=== PATIENT | male | born 1945 | race Caucasian/White ===

== ENCOUNTER 2016-09-26 13:31 | Emergency (ER) | payer OTHER ==
[~2016-09-26] VITALS: Ht 175.3 cm; Wt 79.4 kg
[2016-09-26 13:40] VITALS: BP 164/83; PULSE 78; RESP 18; TEMP 98; O2SAT 100
--- NOTE | 2016-09-26 13:44 | NUR ---
Patient to ER bed 06 to gown for evaluation. Side rails up.
[2016-09-26] MEDS ORDERED: NS 1000 ML BAG IV ONE (13:45)
--- NOTE | 2016-09-26 13:45 | NUR ---
Pt brought by self, A&O x4, pt was sent from his family doctor office due to abnormal labs,(high potassium and elevated BS ) pt denies any symptoms, skin pink and warm, cap refill <3. VS WNL. respirations even and unlabored.
--- NOTE | 2016-09-26 13:54 | NUR ---
Dr Crow at bedside examining patient
[2016-09-26] MEDS ORDERED: LISI40TA4 PO (13:56)
[2016-09-26] MEDS ORDERED: INSNLG7030 SUBCUT (13:56)
[2016-09-26] MEDS ORDERED: WARF5TAB2 PO (13:56)
[2016-09-26] MEDS ORDERED: SPIR25TA4 PO (13:56)
[2016-09-26] MEDS ORDERED: NOR10 PO (13:56)
[2016-09-26] MEDS ORDERED: DIGO125T79 PO (13:56)
[2016-09-26] MEDS ORDERED: METO50TA7 PO (13:56)
[2016-09-26] MEDS ORDERED: LINA5TAB2 PO (13:56)
[2016-09-26] MEDS ORDERED: HYDR-1115 PO (13:56)
[2016-09-26] MEDS ORDERED: PRAV40TA PO (13:56)
--- NOTE | 2016-09-26 13:57 | NUR ---
Medication reconciliation completed with information provided by paperwork from HCP. Any prior medication reconciliation on file was reviewed and corrected.
[2016-09-26 14:05] LABS: BASOPHILS % (AUTO) 0.2 % (0.0-2.0); EOSINOPHILS # (AUTO) 0.1 K/uL (0.0-0.4); EOSINOPHILS % (AUTO) 1.7 % (0.0-4.0); HEMATOCRIT 31.6 % (36-54); HEMOGLOBIN 10.4 g/dL (14.0-18.0); LYMPHOCYTES # (AUTO) 1.3 K/uL (1.0-5.5); LYMPHOCYTES % (AUTO) 16.5 % (20.5-51.5); MEAN CORPUSCULAR HEMOGLOBIN 29 pg (27-31); MEAN CORPUSCULAR HGB CONC 33 % (32-36); MEAN CORPUSCULAR VOLUME 87 fL (79.0-98.0); MONOCYTES # (AUTO) 0.5 K/uL (0.0-1.0); MONOCYTES % (AUTO) 6.8 % (1.7-9.3); NEUTROPHILS # (AUTO) 5.8 K/uL (1.8-7.7); NEUTROPHILS % (AUTO) 74.8 % (40.0-70.0); PLATELET COUNT (AUTO) 197 K/uL (130-430); RED BLOOD CELL COUNT(AUTO) 3.64 MIL/uL (4.2-6.2); RED CELL DISTRIBUTION WIDTH 13.4 % (9.0-15.0); WHITE BLOOD COUNT (AUTO) 7.7 K/uL (4.8-10.8)
[2016-09-26] MEDS ORDERED: INSULIN REGULAR, HUMAN 10 UNITS/0.1 ML INJ IVP ONE (14:15)
[2016-09-26 14:21] LABS: INR 1.7 (0.80-1.20); PROTHROMBIN TIME 18.7 SECS (9.5-12.5)
[2016-09-26 14:23] LABS: ALBUMIN 3.8 g/dL (3.4-4.8); CALCIUM 8.4 mg/dL (8.4-11.0); CREATININE 3.34 mg/dL (0.55-1.30); TOTAL BILIRUBIN 0.3 mg/dL (0.0-1.0); TOTAL PROTEIN, SERUM 8.1 g/dL (6.4-8.3)
[2016-09-26 14:26] LABS: POTASSIUM 5.8 mmol/L (3.5-5.1)
[2016-09-26 14:43] LABS: DIGOXIN 0.6 ng/mL (0.80-2.00)
--- NOTE | 2016-09-26 15:09 | NUR ---
Pt on stable condition, requesting a pillow at this time, denies any symptoms.
[2016-09-26 16:03] LABS: BILIRUBIN,URINE NEGATIVE (NEGATIVE); BLOOD, URINE NEGATIVE (NEGATIVE); CLARITY/URINE CLEAR (CLEAR); COLOR,URINE YELLOW (YELLOW); GLUCOSE,URINE 3+ (NEGATIVE); KETONES,URINE NEGATIVE (NEGATIVE); LEUKOCYTE ESTERASE ,URINE NEGATIVE (NEGATIVE); NITRITE, URINE NEGATIVE (NEGATIVE); PH,URINE 5.5 (5.0-8.0); PROTEIN URINE 1+ (NEGATIVE); UROBILINOGEN,URINE 0.2 (0.2-1.0)
[2016-09-26 16:30] LABS: CALCIUM 7.7 mg/dL (8.4-11.0); CREATININE 2.98 mg/dL (0.55-1.30)
[2016-09-26] MEDS ORDERED: IBUPROFEN 800 MG TABLET PO ONE (16:30)
[2016-09-26 16:41] LABS: BACTERIA,URINE FEW /HPF (None Seen); RBC,URINE NONE SEEN /HPF (0-3); WBC,URINE 0-3 /HPF (0-3)
[2016-09-26 16:42] LABS: FINE GRANULAR CASTS,URINE 0-10 /LPF (None Seen); MUCUS,URINE None Seen /LPF (None Seen)
[2016-09-26 16:45] VITALS: BP 152/83; PULSE 76; RESP 18; TEMP 98; O2SAT 98
--- NOTE | 2016-09-26 16:45 | NUR ---
Patient given written and verbal discharge instructions and verbalizes understanding. ER MD Crow discussed with patient the results and treatment provided. Patient in stable condition. ID arm band removed. IV catheter removed intact and dressing applied, no active bleeding. No rx given. Patient educated on pain management and to follow up with PMD. Pain Scale 0/10. Opportunity for questions provided and answered.
== END 2016-09-26 16:45 | disposition home or self-care (01) ==
LOC: SED 13:31
DX: E11.65 Type 2 diabetes mellitus with hyperglycemia (principal); E23.2 Diabetes insipidus; D64.9 Anemia, unspecified; Z79.4 Long term (current) use of insulin
CPT/HCPCS: 36415; 80048; 80053; 80162; 81000; 82962; 83605; 85025; 85610; 85730; 93005; 96361; 96374; 99285; J7030; 96375; J1815

== ENCOUNTER 2020-08-21 19:21 | Emergency (ER) | payer MEDICARE, OTHER ==
[~2020-08-21] VITALS: Ht 175.3 cm; Wt 78.0 kg
[~2020-08-21 19:21] MED LIST: DIGO125T PO; HYDR-4038 PO; INSNLG7030 SUBCUT; LINA5TAB2 PO; LISI40TA13 PO; METO50TA7 PO; NOR10 PO; PRAV40TA PO; SPIR25TA6 PO; WARF5TAB2 PO
[2020-08-21 19:35] VITALS: BP_SYST 150
[2020-08-21] MEDS ORDERED: KETOROLAC TROMETHAMINE 60 MG/2 ML VIAL IM ONE (20:15)
[2020-08-21] MEDS ORDERED: HYDR-3919 PO (20:32)
[2020-08-21] MEDS ORDERED: ACET-2634 PO (20:32)
[2020-08-21 20:42] VITALS: BP_SYST 150
== END 2020-08-21 20:40 | disposition home or self-care (01) ==
LOC: SED 19:21
DX: S29.9XXA Unspecified injury of thorax, initial encounter (principal); I10 Essential (primary) hypertension; E11.9 Type 2 diabetes mellitus without complications; E78.5 Hyperlipidemia, unspecified; Z79.899 Other long term (current) drug therapy; W18.39XA Other fall on same level, initial encounter; Y93.89 Activity, other specified; Y92.89 Other specified places as the place of occurrence of the external cause; Y99.8 Other external cause status
CPT/HCPCS: 71045; 71100; 96372; 99284; J1885

== ENCOUNTER 2021-01-19 05:09 | Emergency (ER) | payer MEDICARE, OTHER ==
[~2021-01-19] VITALS: Ht 175.3 cm; Wt 77.1 kg
[~2021-01-19 05:09] MED LIST changes: +ACET-2634 PO; +HYDR-3919 PO
[2021-01-19 05:17] VITALS: BP_SYST 129
--- NOTE | 2021-01-19 05:21 | NUR ---
Patient to ER bed 7 to gown for evaluation. Side rails up. Report given to Narda BURNETT.
--- NOTE | 2021-01-19 05:22 | NUR ---
Came in ER ambulatory from home this 75 year old male, [id number], breathing spontaneously at room air, not in distress noted. With chief complaints of unsure of the blood glucose level due to his glucose check machine shows undetectable, known case with DM on insulin, HTN on medication, no known allergy, vital signs stable
--- NOTE | 2021-01-19 05:25 | NUR ---
ER at bedside examining patient.
--- NOTE | 2021-01-19 05:34 | NUR ---
Patient given written and verbal discharge instructions and verbalizes understanding. ER MD discussed with patient the results and treatment provided. Patient in stable condition. ID arm band removed. No Rx of given. Patient educatedto follow up with PMD. Pain Scale 0/10. Opportunity for questions provided and answered.
[2021-01-19 05:35] VITALS: BP_SYST 121
== END 2021-01-19 05:34 | disposition home or self-care (01) ==
LOC: SED 05:09
DX: E11.649 Type 2 diabetes mellitus with hypoglycemia without coma (principal); I10 Essential (primary) hypertension; Z79.899 Other long term (current) drug therapy
CPT/HCPCS: 82962; 99282

== ENCOUNTER 2021-08-05 13:30 | Outpatient (CLI) | payer OTHER | END 2021-08-05 18:55 | disposition home or self-care (01) | LOC: SRD 13:30 | PROVIDERS: ATTEND Internal Medicine | DX: J84.89 Other specified interstitial pulmonary diseases (principal); I51.7 Cardiomegaly; I70.90 Unspecified atherosclerosis; R06.00 Dyspnea, unspecified | CPT/HCPCS: 71046-TC ==

== ENCOUNTER → 2022-04-20 | Emergency (ER) | payer MEDICARE, OTHER ==
[~2022-04-20] VITALS: Ht 175.3 cm; Wt 69.4 kg
[2022-04-20 12:08] VITALS: BP_SYST 129
== END | disposition left against medical advice (07) ==
LOC: SED 11:38
DX: H44.003 Unspecified purulent endophthalmitis, bilateral (principal); Z53.21 Procedure and treatment not carried out due to patient leaving prior to being seen by health care provider

== ENCOUNTER 2022-08-12 06:21 | Day surgery (SDC) | payer MEDICARE, OTHER ==
[~2022-08-12] VITALS: Ht 175.3 cm; Wt 70.3 kg
[2022-08-12] MEDS ORDERED: SIMETHICONE 40 MG/0.6 ML ML ONE (07:11)
[2022-08-12] MEDS: MIDAZOLAM HCL 5 MG/5 ML VIAL ONE ×3 (07:48→08:02)
[2022-08-12] MEDS: fentaNYL CITRATE/PF 100 MCG/2 ML AMP ONE ×2 (07:48→07:50)
[2022-08-12 12:59] VITALS: BP_SYST 140
== END 2022-08-12 10:00 | disposition home or self-care (01) ==
LOC: SDS 06:21 → SMU 06:22 → SDS 10:00
PROVIDERS: ATTEND Internal Medicine
DX: Z12.11 Encounter for screening for malignant neoplasm of colon (principal); D12.2 Benign neoplasm of ascending colon; D12.4 Benign neoplasm of descending colon; Z86.010 Personal history of colon polyps; K57.30 Diverticulosis of large intestine without perforation or abscess without bleeding; K64.8 Other hemorrhoids; I10 Essential (primary) hypertension; E11.9 Type 2 diabetes mellitus without complications; Z20.822 Contact with and (suspected) exposure to COVID-19; Z79.899 Other long term (current) drug therapy
CPT/HCPCS: 45380; 45385; 87426; 82962; 36415; 88305; 99152; 99153; G0378; J2250; J3010; 45384

== ENCOUNTER 2022-09-14 11:19 | Inpatient (IN) | payer MEDICARE, OTHER ==
[~2022-09-14] VITALS: Ht 175.3 cm; Wt 69.9 kg
[2022-09-14 11:22] VITALS: BP_SYST 126
[2022-09-14] MEDS ORDERED: OXYCODONE/ACETAMINOPHEN 5-325 TABLET PO ONE (11:30)
[2022-09-14] MEDS ORDERED: NACL 0.9% 1,000 ML IV ONE (12:30)
[2022-09-14] MEDS ORDERED: LIP40 PO (12:41)
[2022-09-14] MEDS ORDERED: SPIR25OR PO (12:41)
[2022-09-14] MEDS ORDERED: DAPA5TAB PO (12:41)
[2022-09-14] MEDS ORDERED: WARF3TAB59 PO (12:41)
[2022-09-14] MEDS ORDERED: LISI40TA13 PO (12:41)
[2022-09-14] MEDS ORDERED: VITD2000 PO (12:41)
[2022-09-14] MEDS ORDERED: METO100T14 PO (12:41)
[2022-09-14] MEDS ORDERED: INSNLG7030 SUBCUT (12:41)
[2022-09-14] MEDS ORDERED: SODI650T PO (12:41)
[2022-09-14] MEDS ORDERED: AMLO2.5T2 PO (12:41)
[2022-09-14] MEDS ORDERED: HYDR-4038 PO (12:41)
[2022-09-14] MEDS ORDERED: OMEG100037 PO (12:41)
[2022-09-14] MEDS ORDERED: FERR220S6 PO (12:41)
[2022-09-14] MEDS ORDERED: FAMOTIDINE PF 20 MG/2 ML VIAL IVP ONE (12:45)
[2022-09-14 12:52] LABS: BASOPHILS % (AUTO) 0.1 % (0.0-2.0); HEMATOCRIT 28.3 % (36-54); HEMOGLOBIN 9.6 g/dL (14.0-18.0); LYMPHOCYTES # (AUTO) 0.3 K/uL (1.0-5.5); LYMPHOCYTES % (AUTO) 2.3 % (20.5-51.5); MEAN CORPUSCULAR HEMOGLOBIN 29 pg (27-31); MEAN CORPUSCULAR HGB CONC 34 % (32-36); MEAN CORPUSCULAR VOLUME 87 fL (79.0-98.0); MONOCYTES # (AUTO) 0.6 K/uL (0.0-1.0); MONOCYTES % (AUTO) 4.5 % (1.7-9.3); NEUTROPHILS # (AUTO) 13.4 K/uL (1.8-7.7); NEUTROPHILS % (AUTO) 93.1 % (40.0-70.0); PLATELET COUNT (AUTO) 186 K/uL (130-430); RED BLOOD CELL COUNT(AUTO) 3.27 MIL/uL (4.2-6.2); RED CELL DISTRIBUTION WIDTH 15.4 % (9.0-15.0); WHITE BLOOD COUNT (AUTO) 14.4 K/uL (4.8-10.8)
[2022-09-14] MEDS ORDERED: FAMOTIDINE PF 20 MG/2 ML VIAL ONE (12:52)
[2022-09-14] MEDS ORDERED: METOPROLOL SUCCINATE 50 MG TAB.SR.24H (TOPROL XL) PO SCH (13:00)
[2022-09-14] MEDS ORDERED: METOPROLOL SUCCINATE 50 MG TAB.SR.24H (TOPROL XL) PO ONE (13:00)
[2022-09-14] MEDS ORDERED: ONDANSETRON HCL 4 MG/2 ML VIAL IVP ONE (13:00)
[2022-09-14 13:02] LABS: ANION GAP 13 (5-15); CALCIUM 8.6 mg/dL (8.4-11.0); CHLORIDE 104 mmol/L (98-107); CREATININE 2.68 mg/dL (0.55-1.30); GLUCOSE 162 mg/dL (70-99); UREA NITROGEN, BLOOD 64 mg/dL (8-21)
[2022-09-14 13:08] LABS: ALANINE AMINOTRANSFERASE 65 U/L (12-78); ALBUMIN 3.3 g/dL (3.4-4.8); ASPARTATE AMINOTRANSFERASE 34 U/L (10-37); PHOSPHORUS 3.8 mg/dL (2.7-4.5); TOTAL BILIRUBIN 0.6 mg/dL (0.0-1.0)
[2022-09-14 13:25] LABS: INR 1.9 (0.80-1.20); PROTHROMBIN TIME 19.6 SECS (9.5-12.5)
[2022-09-14] MEDS ORDERED: METOPROLOL TARTRATE 5 MG/5 ML VIAL IVP ONE ×2 (13:30→14:15)
[2022-09-14] MEDS ORDERED: cefTRIAXone 1 GM IVPB PREMIX 50 ML IV ONE (13:30)
[2022-09-14] MEDS ORDERED: DIGOXIN 0.5 MG/2 ML AMP IVP ONE (13:30)
[2022-09-14] MEDS ORDERED: DAPAGLIFLOZIN PROPANEDIOL NF 5 MG TABLET PO SCH (15:15)
[2022-09-14] MEDS ORDERED: amLODIPine BESYLATE 5 MG TABLET PO SCH (15:15)
[2022-09-14] MEDS ORDERED: HYDROcodone/ACETAMIN 5-325 MG TAB (NORCO/ VICODIN) PO PRN (15:15)
[2022-09-14] MEDS ORDERED: INSULIN Aspart Prota/Aspar MIX 70-30, 100 UNITS/ML, 10 ML VIAL SUBCUT SCH ×2 (15:15→21:00)
[2022-09-14] MEDS ORDERED: ACETAMINOPHEN 500 MG TABLET PO PRN (15:15)
[2022-09-14] MEDS ORDERED: hydrALAZINE HCL 25 MG TABLET PO ONE (16:00)
[2022-09-14] MEDS ORDERED: CHOLECALCIFEROL (VITAMIN D3) 2,000 UNIT TABLET PO ONE (16:30)
[2022-09-14] MEDS ORDERED: WARFARIN SODIUM 5 MG TABLET PO SCH (18:00)
[2022-09-14] MEDS ORDERED: dilTIAZem HCL IVP 5 MG/ML VIAL IVP ONE (19:45)
[2022-09-14] MEDS ORDERED: dilTIAZem HCL IVP 5 MG/ML VIAL ONE (19:57)
[2022-09-14 20:30] VITALS: BP_SYST 136
[2022-09-14] MEDS ORDERED: WARFARIN SODIUM 3 MG TABLET PO ONE (20:30)
[2022-09-14] MEDS ORDERED: hydrALAZINE HCL 25 MG TABLET PO SCH (21:00)
[2022-09-14] MEDS: INSULIN NPH/REGULAR 70-30, 100 UNITS/ML, 3 ML VIAL SUBCUT SCH (21:22)
[2022-09-14] MEDS: INSULIN REGULAR, HUMAN 100 UNITS/ML, 3 ML VIAL (humuLIN R) SUBCUT PRN (21:23)
[2022-09-14] MEDS: hydrALAZINE HCL 25 MG TABLET PO SCH (21:24)
[2022-09-14] MEDS: METOPROLOL SUCCINATE 50 MG TAB.SR.24H (TOPROL XL) PO SCH (21:24)
[2022-09-15 00:08] VITALS: BP_SYST 139
[2022-09-15] MEDS: INSULIN NPH/REGULAR 70-30, 100 UNITS/ML, 3 ML VIAL SUBCUT SCH ×2 (07:35→20:57)
[2022-09-15 07:54] VITALS: BP_SYST 122
[2022-09-15 08:03] LABS: INR 2.1 (0.80-1.20); PROTHROMBIN TIME 20.6 SECS (9.5-12.5)
[2022-09-15] MEDS: OMEGA-3/DHA/EPA/FISH OIL 1 GM CAPSULE PO SCH (08:52)
[2022-09-15] MEDS: SODIUM BICARBONATE 650 MG TABLET PO SCH (08:53)
[2022-09-15] MEDS: SPIRONOLACTONE 25 MG TABLET (ALDACTONE) PO SCH (08:53)
[2022-09-15] MEDS: ATORVASTATIN 20 MG TABLET PO SCH (08:53)
[2022-09-15] MEDS: amLODIPine BESYLATE 10 MG TABLET PO SCH (08:54)
[2022-09-15] MEDS: CHOLECALCIFEROL (VITAMIN D3) 2,000 UNIT TABLET PO SCH (08:54)
[2022-09-15] MEDS: lisinopriL 20 MG TABLET PO SCH (08:55)
[2022-09-15] MEDS: hydrALAZINE HCL 25 MG TABLET PO SCH ×3 (08:55→20:54)
[2022-09-15] MEDS: METOPROLOL SUCCINATE 50 MG TAB.SR.24H (TOPROL XL) PO SCH ×2 (08:56→20:54)
[2022-09-15] MEDS: DIGOXIN 0.125 MG TABLET PO SCH (08:57)
[2022-09-15] MEDS ORDERED: METOPROLOL SUCCINATE 50 MG TAB.SR.24H (TOPROL XL) PO SCH (09:00)
[2022-09-15] MEDS ORDERED: EMPAGLIFLOZIN 10 MG TABLET PO SCH (09:00)
[2022-09-15] MEDS ORDERED: lisinopriL 20 MG TABLET PO SCH (09:00)
[2022-09-15] MEDS ORDERED: PRAVASTATIN SODIUM 20 MG TABLET (PRAVACHOL) PO SCH (09:00)
[2022-09-15 11:41] VITALS: BP_SYST 138
[2022-09-15 11:47] LABS: ANION GAP 10 (5-15); CALCIUM 8.4 mg/dL (8.4-11.0); CHLORIDE 106 mmol/L (98-107); CREATININE 2.52 mg/dL (0.55-1.30); GLUCOSE 132 mg/dL (70-99); UREA NITROGEN, BLOOD 58 mg/dL (8-21)
[2022-09-15 11:54] LABS: BASOPHILS % (AUTO) 0.2 % (0.0-2.0); EOSINOPHILS % (AUTO) 0.2 % (0.0-4.0); HEMATOCRIT 26.7 % (36-54); LYMPHOCYTES # (AUTO) 0.6 K/uL (1.0-5.5); LYMPHOCYTES % (AUTO) 4.6 % (20.5-51.5); MEAN CORPUSCULAR HEMOGLOBIN 29 pg (27-31); MEAN CORPUSCULAR HGB CONC 34 % (32-36); MEAN CORPUSCULAR VOLUME 87 fL (79.0-98.0); MONOCYTES # (AUTO) 0.5 K/uL (0.0-1.0); MONOCYTES % (AUTO) 4.6 % (1.7-9.3); NEUTROPHILS # (AUTO) 10.8 K/uL (1.8-7.7); NEUTROPHILS % (AUTO) 90.4 % (40.0-70.0); PLATELET COUNT (AUTO) 162 K/uL (130-430); RED BLOOD CELL COUNT(AUTO) 3.07 MIL/uL (4.2-6.2); RED CELL DISTRIBUTION WIDTH 15.4 % (9.0-15.0)
[2022-09-15] MEDS: INSULIN REGULAR, HUMAN 100 UNITS/ML, 3 ML VIAL (humuLIN R) SUBCUT PRN ×2 (11:55→16:13)
[2022-09-15 16:56] VITALS: BP_SYST 131
[2022-09-15] MEDS ORDERED: WARFARIN SODIUM 3 MG TABLET PO SCH (18:00)
[2022-09-15] MEDS ORDERED: WARFARIN SODIUM 4 MG TABLET PO SCH (18:00)
[2022-09-15 20:00] VITALS: BP_SYST 137
[2022-09-16 01:02] VITALS: BP_SYST 128
[2022-09-16 05:32] LABS: INR 1.9 (0.80-1.20); PROTHROMBIN TIME 19.6 SECS (9.5-12.5)
[2022-09-16] MEDS: traMADol HCL HCL 50 MG TABLET (ULTRAM) PO PRN ×2 (05:45→16:00)
[2022-09-16] MEDS: INSULIN NPH/REGULAR 70-30, 100 UNITS/ML, 3 ML VIAL SUBCUT SCH ×2 (07:07→21:40)
[2022-09-16 08:00] VITALS: BP_SYST 116
[2022-09-16] MEDS: OMEGA-3/DHA/EPA/FISH OIL 1 GM CAPSULE PO SCH (09:16)
[2022-09-16] MEDS: CHOLECALCIFEROL (VITAMIN D3) 2,000 UNIT TABLET PO SCH (09:17)
[2022-09-16] MEDS: ATORVASTATIN 20 MG TABLET PO SCH (09:17)
[2022-09-16] MEDS: SODIUM BICARBONATE 650 MG TABLET PO SCH (09:17)
[2022-09-16] MEDS: SPIRONOLACTONE 25 MG TABLET (ALDACTONE) PO SCH (09:18)
[2022-09-16] MEDS: hydrALAZINE HCL 25 MG TABLET PO SCH ×3 (09:18→21:33)
[2022-09-16] MEDS: DIGOXIN 0.125 MG TABLET PO SCH (09:21)
[2022-09-16] MEDS: amLODIPine BESYLATE 10 MG TABLET PO SCH (09:21)
[2022-09-16] MEDS: lisinopriL 20 MG TABLET PO SCH (09:22)
[2022-09-16] MEDS: METOPROLOL SUCCINATE 50 MG TAB.SR.24H (TOPROL XL) PO SCH ×2 (09:22→21:32)
[2022-09-16] MEDS ORDERED: METOPROLOL SUCCINATE 25 MG TAB.SR.24H (TOPROL XL) PO ONE (11:00)
[2022-09-16] MEDS: INSULIN REGULAR, HUMAN 100 UNITS/ML, 3 ML VIAL (humuLIN R) SUBCUT PRN ×2 (11:15→17:34)
[2022-09-16 13:10] VITALS: BP_SYST 113; BP_SYST 114
[2022-09-16] MEDS: WARFARIN SODIUM 5 MG TABLET PO SCH (17:33)
[2022-09-16 18:37] VITALS: BP_SYST 135
[2022-09-16 20:00] VITALS: BP_SYST 143
[2022-09-16] MEDS ORDERED: METOPROLOL SUCCINATE 25 MG TAB.SR.24H (TOPROL XL) PO SCH (21:00)
[2022-09-16] MEDS ORDERED: VANCOMYCIN HCL 1,000 MG in NS 250 ML IV ONE (21:00)
[2022-09-16] MEDS ORDERED: METOPROLOL SUCCINATE 50 MG TAB.SR.24H (TOPROL XL) PO SCH (21:00)
[2022-09-16] MEDS: INSULIN GLARGINE 100 UNITS/ML, 10 ML VIAL SUBCUT SCH (21:39)
[2022-09-17 00:30] VITALS: BP_SYST 131
[2022-09-17 06:16] LABS: BASOPHILS % (AUTO) 0.2 % (0.0-2.0); EOSINOPHILS # (AUTO) 0.3 K/uL (0.0-0.4); EOSINOPHILS % (AUTO) 3.6 % (0.0-4.0); HEMATOCRIT 25.5 % (36-54); HEMOGLOBIN 8.7 g/dL (14.0-18.0); LYMPHOCYTES # (AUTO) 0.8 K/uL (1.0-5.5); LYMPHOCYTES % (AUTO) 9.5 % (20.5-51.5); MEAN CORPUSCULAR HEMOGLOBIN 30 pg (27-31); MEAN CORPUSCULAR HGB CONC 34 % (32-36); MEAN CORPUSCULAR VOLUME 87 fL (79.0-98.0); MONOCYTES # (AUTO) 0.7 K/uL (0.0-1.0); MONOCYTES % (AUTO) 8.5 % (1.7-9.3); NEUTROPHILS # (AUTO) 6.5 K/uL (1.8-7.7); NEUTROPHILS % (AUTO) 78.2 % (40.0-70.0); PLATELET COUNT (AUTO) 151 K/uL (130-430); RED BLOOD CELL COUNT(AUTO) 2.92 MIL/uL (4.2-6.2); RED CELL DISTRIBUTION WIDTH 15.3 % (9.0-15.0); WHITE BLOOD COUNT (AUTO) 8.3 K/uL (4.8-10.8)
[2022-09-17 06:32] LABS: INR 2.2 (0.80-1.20); PROTHROMBIN TIME 21.9 SECS (9.5-12.5)
[2022-09-17 06:45] LABS: ALANINE AMINOTRANSFERASE 42 U/L (12-78); ALBUMIN 2.5 g/dL (3.4-4.8); ANION GAP 10 (5-15); ASPARTATE AMINOTRANSFERASE 20 U/L (10-37); CALCIUM 7.8 mg/dL (8.4-11.0); CHLORIDE 103 mmol/L (98-107); CREATININE 2.63 mg/dL (0.55-1.30); GLUCOSE 174 mg/dL (70-99); PHOSPHORUS 4.1 mg/dL (2.7-4.5); TOTAL BILIRUBIN 0.6 mg/dL (0.0-1.0); UREA NITROGEN, BLOOD 65 mg/dL (8-21); VANCOMYCIN,RANDOM 12.2 ug/mL
[2022-09-17 07:49] VITALS: BP_SYST 136
[2022-09-17] MEDS: OMEGA-3/DHA/EPA/FISH OIL 1 GM CAPSULE PO SCH (08:11)
[2022-09-17] MEDS: METOPROLOL SUCCINATE 50 MG TAB.SR.24H (TOPROL XL) PO SCH ×2 (08:12→20:32)
[2022-09-17] MEDS: SODIUM BICARBONATE 650 MG TABLET PO SCH (08:13)
[2022-09-17] MEDS: lisinopriL 20 MG TABLET PO SCH (08:13)
[2022-09-17] MEDS: ATORVASTATIN 20 MG TABLET PO SCH (08:13)
[2022-09-17] MEDS: DIGOXIN 0.125 MG TABLET PO SCH (08:13)
[2022-09-17] MEDS: amLODIPine BESYLATE 5 MG TABLET PO SCH (08:14)
[2022-09-17] MEDS: hydrALAZINE HCL 25 MG TABLET PO SCH ×3 (08:14→20:33)
[2022-09-17] MEDS: CHOLECALCIFEROL (VITAMIN D3) 2,000 UNIT TABLET PO SCH (08:14)
[2022-09-17] MEDS: SPIRONOLACTONE 25 MG TABLET (ALDACTONE) PO SCH (08:15)
[2022-09-17] MEDS: traMADol HCL HCL 50 MG TABLET (ULTRAM) PO PRN (08:15)
[2022-09-17] MEDS: INSULIN NPH/REGULAR 70-30, 100 UNITS/ML, 3 ML VIAL SUBCUT SCH ×2 (08:19→20:42)
[2022-09-17] MEDS: INSULIN REGULAR, HUMAN 100 UNITS/ML, 3 ML VIAL (humuLIN R) SUBCUT PRN (11:13)
[2022-09-17 11:17] VITALS: BP_SYST 125
[2022-09-17] MEDS: WARFARIN SODIUM 5 MG TABLET PO SCH (17:11)
[2022-09-17 17:17] VITALS: BP_SYST 121
[2022-09-17 20:00] VITALS: BP_SYST 138
[2022-09-17] MEDS: INSULIN GLARGINE 100 UNITS/ML, 10 ML VIAL SUBCUT SCH (20:41)
[2022-09-17] MEDS ORDERED: VANCOMYCIN HCL 750 MG in NS 250 ML IV SCH (21:00)
[2022-09-18 00:42] VITALS: BP_SYST 148
[2022-09-18 05:43] LABS: BASOPHILS % (AUTO) 0.2 % (0.0-2.0); EOSINOPHILS # (AUTO) 0.2 K/uL (0.0-0.4); EOSINOPHILS % (AUTO) 2.2 % (0.0-4.0); HEMATOCRIT 25.7 % (36-54); LYMPHOCYTES # (AUTO) 0.7 K/uL (1.0-5.5); LYMPHOCYTES % (AUTO) 8.9 % (20.5-51.5); MEAN CORPUSCULAR HEMOGLOBIN 31 pg (27-31); MEAN CORPUSCULAR HGB CONC 35 % (32-36); MEAN CORPUSCULAR VOLUME 87 fL (79.0-98.0); MONOCYTES # (AUTO) 0.7 K/uL (0.0-1.0); NEUTROPHILS # (AUTO) 6.3 K/uL (1.8-7.7); NEUTROPHILS % (AUTO) 79.7 % (40.0-70.0); PLATELET COUNT (AUTO) 163 K/uL (130-430); RED BLOOD CELL COUNT(AUTO) 2.94 MIL/uL (4.2-6.2); RED CELL DISTRIBUTION WIDTH 15.4 % (9.0-15.0)
[2022-09-18 06:12] LABS: ANION GAP 9 (5-15); CALCIUM 7.6 mg/dL (8.4-11.0); CHLORIDE 102 mmol/L (98-107); CREATININE 2.49 mg/dL (0.55-1.30); GLUCOSE 200 mg/dL (70-99); UREA NITROGEN, BLOOD 65 mg/dL (8-21)
[2022-09-18] MEDS: INSULIN REGULAR, HUMAN 100 UNITS/ML, 3 ML VIAL (humuLIN R) SUBCUT PRN ×3 (06:49→16:12)
[2022-09-18 08:04] LABS: INR 4.1 (0.80-1.20); PROTHROMBIN TIME 40.2 SECS (9.5-12.5)
[2022-09-18 08:06] VITALS: BP_SYST 134
[2022-09-18] MEDS: OMEGA-3/DHA/EPA/FISH OIL 1 GM CAPSULE PO SCH (09:00)
[2022-09-18] MEDS: INSULIN NPH/REGULAR 70-30, 100 UNITS/ML, 3 ML VIAL SUBCUT SCH (09:41)
[2022-09-18] MEDS: SODIUM BICARBONATE 650 MG TABLET PO SCH (09:42)
[2022-09-18] MEDS: lisinopriL 20 MG TABLET PO SCH (09:43)
[2022-09-18] MEDS: DIGOXIN 0.125 MG TABLET PO SCH (09:43)
[2022-09-18] MEDS: METOPROLOL SUCCINATE 50 MG TAB.SR.24H (TOPROL XL) PO SCH (09:44)
[2022-09-18] MEDS: amLODIPine BESYLATE 5 MG TABLET PO SCH (09:45)
[2022-09-18] MEDS: hydrALAZINE HCL 25 MG TABLET PO SCH ×2 (09:45→16:05)
[2022-09-18] MEDS: ATORVASTATIN 20 MG TABLET PO SCH (09:45)
[2022-09-18] MEDS: CHOLECALCIFEROL (VITAMIN D3) 2,000 UNIT TABLET PO SCH (09:46)
[2022-09-18] MEDS: SPIRONOLACTONE 25 MG TABLET (ALDACTONE) PO SCH (09:46)
[2022-09-18 11:29] VITALS: BP_SYST 119
[2022-09-18] MEDS ORDERED: METO100T14 PO (13:06)
[2022-09-18] MEDS ORDERED: LIP40 PO (13:06)
[2022-09-18 15:32] VITALS: BP_SYST 132
[2022-09-18 17:19] VITALS: BP_SYST 131
== END 2022-09-18 18:40 | DRG 535 ==
LOC: SED 11:19 → STU 14:54 → SMU 09-17 11:50
PROVIDERS: ADMIT Specialist; ATTEND Specialist
PROC: 0QS2XZZ Reposition Right Pelvic Bone, External Approach (ICD-10-PCS; principal; 2022-09-17)
DX: S32.511A Fracture of superior rim of right pubis, initial encounter for closed fracture (principal); S32.491A Other specified fracture of right acetabulum, initial encounter for closed fracture; N18.4 Chronic kidney disease, stage 4 (severe); I48.91 Unspecified atrial fibrillation; I12.9 Hypertensive chronic kidney disease with stage 1 through stage 4 chronic kidney disease, or unspecified chronic kidney disease; E11.22 Type 2 diabetes mellitus with diabetic chronic kidney disease; E78.00 Pure hypercholesterolemia, unspecified; I25.10 Atherosclerotic heart disease of native coronary artery without angina pectoris; W18.39XA Other fall on same level, initial encounter; Z79.891 Long term (current) use of opiate analgesic; Z79.899 Other long term (current) drug therapy; Y93.89 Activity, other specified; Y99.8 Other external cause status; Y92.89 Other specified places as the place of occurrence of the external cause
CPT/HCPCS: 36415; 71045; 72170-TC; 72192-TC; 72195; 73502; 76376; 80048; 80053; 80162; 80202; 82962; 83037; 83605; 83735; 83880; 84100; 84484; 85025; 85610-TC; 85730-TC; 87040; 93005; 93306; 97110-GP; 97116-GP; 97163-GP; 97530-GP; 99285; G0378; J0696; J1160; J1815; J2405; J3370; J3490; J7050

== ENCOUNTER 2022-10-16 23:36 | Emergency (ER) | payer MEDICARE, OTHER ==
[~2022-10-16] VITALS: Ht 175.3 cm; Wt 67.1 kg
[~2022-10-16 23:36] MED LIST changes: -ACET-2634 PO; +AMLO2.5T2 PO; +DAPA5TAB PO; -HYDR-3919 PO; -LINA5TAB2 PO; +LIP40 PO; +METO100T14 PO; +OMEG100037 PO; -PRAV40TA PO; +SPIR25OR PO; +VITD2000 PO; -WARF5TAB2 PO
[2022-10-16 23:52] VITALS: BP_SYST 151
--- NOTE | 2022-10-17 | NUR ---
BILATERAL PELVIC PAIN, RECENT PELVIC FRACTURE, UNCONTROLLED PAIN MANAGEMENT
--- NOTE | 2022-10-17 01:04 | NUR ---
Patient arrived to ED 2 for c/o pelvic pain. He had generalized weakness for two days. He was previously on hospice and was discharged. Normally uses walker. He had previous pelvic fracture. He was at [facility]. He fell on mother's day night and was admitted to hospital. No distress noted. Vital signs stable. Will continue to monitor.
[2022-10-17 01:15] LABS: BILIRUBIN,URINE NEGATIVE (NEGATIVE); CLARITY/URINE CLEAR (CLEAR); COLOR,URINE YELLOW (YELLOW); GLUCOSE,URINE 3+ (NEGATIVE); KETONES,URINE NEGATIVE (NEGATIVE); LEUKOCYTE ESTERASE ,URINE NEGATIVE (NEGATIVE); NITRITE, URINE NEGATIVE (NEGATIVE); PH,URINE 6.5 (5.0-8.0); PROTEIN URINE 2+ (NEGATIVE); UROBILINOGEN,URINE 0.2 (0.2-1.0)
[2022-10-17 01:20] LABS: BLOOD, URINE TRACE (NEGATIVE)
[2022-10-17 01:33] LABS: BACTERIA,URINE RARE /HPF (None Seen)
[2022-10-17 01:42] LABS: BASOPHILS % (AUTO) 0.3 % (0.0-2.0); EOSINOPHILS # (AUTO) 0.2 K/uL (0.0-0.4); EOSINOPHILS % (AUTO) 1.8 % (0.0-4.0); HEMATOCRIT 27.8 % (36-54); HEMOGLOBIN 9.3 g/dL (14.0-18.0); LYMPHOCYTES # (AUTO) 1.3 K/uL (1.0-5.5); LYMPHOCYTES % (AUTO) 13.9 % (20.5-51.5); MEAN CORPUSCULAR HEMOGLOBIN 29 pg (27-31); MEAN CORPUSCULAR HGB CONC 33 % (32-36); MEAN CORPUSCULAR VOLUME 88 fL (79.0-98.0); MONOCYTES # (AUTO) 0.9 K/uL (0.0-1.0); NEUTROPHILS # (AUTO) 6.8 K/uL (1.8-7.7); PLATELET COUNT (AUTO) 251 K/uL (130-430); RED BLOOD CELL COUNT(AUTO) 3.17 MIL/uL (4.2-6.2); RED CELL DISTRIBUTION WIDTH 15.5 % (9.0-15.0); WHITE BLOOD COUNT (AUTO) 9.2 K/uL (4.8-10.8)
[2022-10-17 01:47] LABS: ANION GAP 6 (5-15); CALCIUM 8.5 mg/dL (8.4-11.0); CHLORIDE 97 mmol/L (98-107); CREATININE 2.51 mg/dL (0.55-1.30); GLUCOSE 175 mg/dL (70-99); UREA NITROGEN, BLOOD 50 mg/dL (8-21)
[2022-10-17 01:52] LABS: ALANINE AMINOTRANSFERASE 31 U/L (12-78); ALBUMIN 3.3 g/dL (3.4-4.8); ASPARTATE AMINOTRANSFERASE 21 U/L (10-37); TOTAL BILIRUBIN 0.4 mg/dL (0.0-1.0)
[2022-10-17] MEDS ORDERED: HYDR-3917 PO (01:56)
[2022-10-17] MEDS ORDERED: HYDROcodone/ACETAMIN 5-325 MG TAB (NORCO/ VICODIN) PO ONE (02:00)
--- NOTE | 2022-10-17 02:00 | NUR ---
Patient given written and verbal discharge instructions and verbalizes understanding. ER MD discussed with patient the results and treatment provided. Patient in stable condition. ID arm band removed. Patient educated on pain management and to follow up with PMD. Pain Scale . Opportunity for questions provided and answered. Medication side effect fact sheet provided.
[2022-10-17 02:37] VITALS: BP_SYST 134
== END 2022-10-17 02:37 | disposition home or self-care (01) ==
LOC: SED 23:36
DX: S32.9XXA Fracture of unspecified parts of lumbosacral spine and pelvis, initial encounter for closed fracture (principal); D53.9 Nutritional anemia, unspecified; I12.9 Hypertensive chronic kidney disease with stage 1 through stage 4 chronic kidney disease, or unspecified chronic kidney disease; E11.22 Type 2 diabetes mellitus with diabetic chronic kidney disease; N18.9 Chronic kidney disease, unspecified; Z79.899 Other long term (current) drug therapy; X58.XXXA Exposure to other specified factors, initial encounter; Y93.89 Activity, other specified; Y92.89 Other specified places as the place of occurrence of the external cause; Y99.8 Other external cause status
CPT/HCPCS: 36415; 80053; 81000; 85025; 99283

== ENCOUNTER 2022-10-24 14:12 | Emergency (ER) | payer MEDICARE, OTHER ==
[~2022-10-24] VITALS: Ht 175.3 cm; Wt 67.1 kg
[~2022-10-24 14:12] MED LIST changes: +HYDR-3917 PO
[2022-10-24] MEDS ORDERED: KETOROLAC TROMETHAMINE 60 MG/2 ML VIAL IM ONE (14:45)
[2022-10-24 14:46] VITALS: BP_SYST 143
[2022-10-24] MEDS ORDERED: DEXTROSE 50% JECT 50 ML DISP.SYRIN ONE (16:20)
[2022-10-24] MEDS ORDERED: DICL20GE TP (17:06)
[2022-10-24 17:16] VITALS: BP_SYST 129
== END 2022-10-24 17:16 | disposition home or self-care (01) ==
LOC: SED 14:12
DX: S32.591A Other specified fracture of right pubis, initial encounter for closed fracture (principal); M16.11 Unilateral primary osteoarthritis, right hip; E11.9 Type 2 diabetes mellitus without complications; I10 Essential (primary) hypertension; E78.5 Hyperlipidemia, unspecified; Z79.899 Other long term (current) drug therapy; X58.XXXA Exposure to other specified factors, initial encounter; Y93.89 Activity, other specified; Y92.89 Other specified places as the place of occurrence of the external cause; Y99.8 Other external cause status
CPT/HCPCS: 99284; 73502; 96372; 72170; J1885

== ENCOUNTER 2022-11-04 03:54 | Inpatient (IN) | payer MEDICARE, OTHER ==
[~2022-11-04] VITALS: Ht 175.3 cm; Wt 72.6 kg
[~2022-11-04 03:54] MED LIST changes: +DICL20GE TP
[2022-11-04 04:05] VITALS: BP_SYST 161; PULSE 162; RESP 18; TEMP 98.4
[2022-11-04] MEDS ORDERED: METOPROLOL TARTRATE 5 MG/5 ML VIAL IVP ONE (04:30)
[2022-11-04 05:14] LABS: BASOPHILS % (AUTO) 0.3 % (0.0-2.0); EOSINOPHILS # (AUTO) 0.1 K/uL (0.0-0.4); EOSINOPHILS % (AUTO) 0.6 % (0.0-4.0); LYMPHOCYTES # (AUTO) 0.9 K/uL (1.0-5.5); LYMPHOCYTES % (AUTO) 7.9 % (20.5-51.5); MEAN CORPUSCULAR HEMOGLOBIN 29 pg (27-31); MEAN CORPUSCULAR HGB CONC 32 % (32-36); MEAN CORPUSCULAR VOLUME 89 fL (79.0-98.0); MONOCYTES # (AUTO) 1.1 K/uL (0.0-1.0); MONOCYTES % (AUTO) 9.9 % (1.7-9.3); NEUTROPHILS # (AUTO) 9.1 K/uL (1.8-7.7); NEUTROPHILS % (AUTO) 81.3 % (40.0-70.0); PLATELET COUNT (AUTO) 381 K/uL (130-430); RED BLOOD CELL COUNT(AUTO) 3.48 MIL/uL (4.2-6.2); RED CELL DISTRIBUTION WIDTH 16.8 % (9.0-15.0); WHITE BLOOD COUNT (AUTO) 11.2 K/uL (4.8-10.8)
[2022-11-04 05:37] LABS: ANION GAP 10 (5-15); CALCIUM 8.3 mg/dL (8.4-11.0); CARBON DIOXIDE 26 mmol/L (23-29); CHLORIDE 104 mmol/L (98-107); CREATININE 2.51 mg/dL (0.55-1.30); GLUCOSE 99 mg/dL (74-106); POTASSIUM 3.6 mmol/L (3.5-5.1); SODIUM SERUM 140 mmol/L (136-145); UREA NITROGEN, BLOOD 45 mg/dL (8-21)
[2022-11-04 05:50] LABS: ALANINE AMINOTRANSFERASE 28 U/L (12-78); ALBUMIN 2.6 g/dL (3.4-4.8); ASPARTATE AMINOTRANSFERASE 21 U/L (10-37); PHOSPHORUS 3.4 mg/dL (2.7-4.5); TOTAL BILIRUBIN 0.7 mg/dL (0.0-1.0); TOTAL PROTEIN, SERUM 7.5 g/dL (6.4-8.3)
[2022-11-04 05:56] LABS: PROTHROMBIN TIME 34.7 SECS (9.5-12.5)
[2022-11-04 05:57] LABS: INR 3.6 (0.80-1.20)
[2022-11-04 06:24] LABS: BILIRUBIN,URINE 1+ (NEGATIVE); CLARITY/URINE HAZY (CLEAR); COLOR,URINE YELLOW (YELLOW); GLUCOSE,URINE 1+ (NEGATIVE); KETONES,URINE NEGATIVE (NEGATIVE); PROTEIN URINE 1+ (NEGATIVE)
[2022-11-04 06:25] LABS: BLOOD, URINE NEGATIVE (NEGATIVE); LEUKOCYTE ESTERASE ,URINE NEGATIVE (NEGATIVE); NITRITE, URINE NEGATIVE (NEGATIVE)
[2022-11-04 06:26] LABS: BACTERIA,URINE None Seen /HPF (None Seen); RBC,URINE 0-3 /HPF (0-3); WBC,URINE 0-3 /HPF (0-3)
[2022-11-04] MEDS ORDERED: HYDROcodone/ACETAMIN 10-325 MG TAB PO ONE (06:30)
[2022-11-04] MEDS ORDERED: IBUPROFEN 600 MG TABLET PO ONE (06:30)
[2022-11-04] MEDS ORDERED: DILTIAZEM HCL 60 MG TABLET PO ONE (07:00)
[2022-11-04] MEDS ORDERED: dilTIAZem HCL IVP 5 MG/ML VIAL IVP ONE (07:00)
[2022-11-04 16:35] VITALS: BP_SYST 153; PULSE 106; RESP 18; TEMP 97
[2022-11-04 16:48] VITALS: O2SAT 93
[2022-11-04] MEDS ORDERED: HYDROcodone/ACETAMIN 5-325 MG TAB (NORCO/ VICODIN) PO PRN (18:15)
[2022-11-04] MEDS ORDERED: ONDANSETRON HCL 4 MG/2 ML VIAL IVP PRN (18:15)
[2022-11-04] MEDS ORDERED: HYDROcodone/ACETAMIN 10-325 MG TAB PO PRN (18:15)
[2022-11-04] MEDS ORDERED: ACETAMINOPHEN 325 MG TABLET PO PRN ×2 (18:15→18:45)
[2022-11-04] MEDS ORDERED: NALOXONE HCL 0.4 MG/ML AMP (NARCAN) IVP PRN ×2 (18:15)
[2022-11-04] MEDS ORDERED: LORazepam 2 MG/ML VIAL IVP PRN (18:15)
[2022-11-04] MEDS ORDERED: ATORVASTATIN 20 MG TABLET PO ONE (19:15)
[2022-11-04 20:00] VITALS: BP_SYST 162; PULSE 120; RESP 17; TEMP 97.4; O2SAT 94
[2022-11-04] MEDS ORDERED: lisinopriL 20 MG TABLET PO SCH (21:00)
[2022-11-04] MEDS ORDERED: METOPROLOL SUCCINATE 50 MG TAB.SR.24H (TOPROL XL) PO SCH (21:00)
[2022-11-04] MEDS ORDERED: NON-FORMULARY MEDICATION (Diclofenac Sodium (Voltaren Arthritis Pain) 2 GM) TP SCH (21:00)
[2022-11-04] MEDS ORDERED: ATORVASTATIN 20 MG TABLET PO SCH (21:00)
[2022-11-04] MEDS ORDERED: METOPROLOL TARTRATE 75 MG PO SCH (21:00)
[2022-11-04] MEDS ORDERED: INSULIN Aspart Prota/Aspar MIX 70-30, 100 UNITS/ML, 10 ML VIAL SUBCUT SCH (21:00)
[2022-11-04] MEDS: OMEGA-3/DHA/EPA/FISH OIL 1 GM CAPSULE PO SCH (21:37)
[2022-11-04] MEDS: METOPROLOL SUCCINATE 50 MG TAB.SR.24H (TOPROL XL) PO SCH (21:37)
[2022-11-04] MEDS: hydrALAZINE HCL 25 MG TABLET PO SCH (21:38)
[2022-11-04] MEDS: INSULIN NPH/REGULAR 70-30, 100 UNITS/ML, 3 ML VIAL SUBCUT SCH (21:44)
[2022-11-04] MEDS: NORMAL SALINE 5 ML DISP.SYRIN IVF SCH (21:52)
[2022-11-04] MEDS: dilTIAZem HCL IVP 5 MG/ML VIAL IVP PRN (22:55)
[2022-11-05] VITALS: BP_SYST 159; PULSE 74; RESP 17; TEMP 97.9; O2SAT 98
[2022-11-05 03:29] VITALS: O2SAT 96
[2022-11-05 05:46] LABS: BASOPHILS % (AUTO) 0.4 % (0.0-2.0); EOSINOPHILS # (AUTO) 0.2 K/uL (0.0-0.4); EOSINOPHILS % (AUTO) 2.6 % (0.0-4.0); HEMATOCRIT 29.9 % (36-54); HEMOGLOBIN 9.7 g/dL (14.0-18.0); LYMPHOCYTES # (AUTO) 0.7 K/uL (1.0-5.5); LYMPHOCYTES % (AUTO) 8.5 % (20.5-51.5); MEAN CORPUSCULAR HEMOGLOBIN 29 pg (27-31); MEAN CORPUSCULAR HGB CONC 32 % (32-36); MEAN CORPUSCULAR VOLUME 89 fL (79.0-98.0); MONOCYTES # (AUTO) 0.8 K/uL (0.0-1.0); MONOCYTES % (AUTO) 9.8 % (1.7-9.3); NEUTROPHILS # (AUTO) 6.4 K/uL (1.8-7.7); NEUTROPHILS % (AUTO) 78.7 % (40.0-70.0); PLATELET COUNT (AUTO) 346 K/uL (130-430); RED BLOOD CELL COUNT(AUTO) 3.36 MIL/uL (4.2-6.2); RED CELL DISTRIBUTION WIDTH 16.5 % (9.0-15.0); WHITE BLOOD COUNT (AUTO) 8.1 K/uL (4.8-10.8)
[2022-11-05 05:58] LABS: ANION GAP 9 (5-15); CALCIUM 7.9 mg/dL (8.4-11.0); CARBON DIOXIDE 25 mmol/L (23-29); CHLORIDE 105 mmol/L (98-107); CREATININE 2.49 mg/dL (0.55-1.30); GLUCOSE 203 mg/dL (74-106); PHOSPHORUS 3.8 mg/dL (2.7-4.5); SODIUM SERUM 139 mmol/L (136-145); UREA NITROGEN, BLOOD 45 mg/dL (8-21)
[2022-11-05] MEDS: NORMAL SALINE 5 ML DISP.SYRIN IVF SCH ×3 (06:43→22:25)
[2022-11-05] MEDS: INSULIN NPH/REGULAR 70-30, 100 UNITS/ML, 3 ML VIAL SUBCUT SCH ×2 (06:45→20:08)
[2022-11-05 06:56] LABS: INR 3.2 (0.80-1.20)
[2022-11-05 07:08] LABS: PROTHROMBIN TIME 31.5 SECS (9.5-12.5)
[2022-11-05 08:14] VITALS: BP_SYST 151; PULSE 86; RESP 18; TEMP 97.6; O2SAT 99
[2022-11-05] MEDS ORDERED: amLODIPine BESYLATE 10 MG TABLET PO SCH (09:00)
[2022-11-05] MEDS ORDERED: DAPAGLIFLOZIN 5 MG PO SCH (09:00)
[2022-11-05] MEDS: ATORVASTATIN 20 MG TABLET PO SCH (09:00)
[2022-11-05] MEDS: CHOLECALCIFEROL (VITAMIN D3) 2,000 UNIT TABLET PO SCH (09:18)
[2022-11-05] MEDS: OMEGA-3/DHA/EPA/FISH OIL 1 GM CAPSULE PO SCH ×2 (09:18→20:06)
[2022-11-05] MEDS: SPIRONOLACTONE 25 MG TABLET (ALDACTONE) PO SCH (09:18)
[2022-11-05] MEDS: DIGOXIN 0.125 MG TABLET PO SCH (09:19)
[2022-11-05] MEDS: hydrALAZINE HCL 25 MG TABLET PO SCH ×3 (09:20→20:06)
[2022-11-05] MEDS ORDERED: POLYETHYLENE GLYCOL 3350, 17 GM/ POWD.PACK PO ONE (11:00)
[2022-11-05] MEDS: EMPAGLIFLOZIN 10 MG TABLET PO SCH (13:09)
[2022-11-05] MEDS: dilTIAZem HCL IVP 5 MG/ML VIAL IVP PRN (15:57)
[2022-11-05] MEDS ORDERED: METOPROLOL TARTRATE 5 MG/5 ML VIAL IVP ONE (18:00)
[2022-11-05] MEDS: METOPROLOL SUCCINATE 50 MG TAB.SR.24H (TOPROL XL) PO SCH (18:16)
[2022-11-05 20:00] VITALS: BP_SYST 142; PULSE 140; RESP 18; TEMP 98; O2SAT 99
[2022-11-05] MEDS ORDERED: FAMOTIDINE 20 MG TABLET PO ONE (22:20)
[2022-11-05] MEDS: metroNIDAZOLE 500 mg/NS 100 ML IV SCH (22:25)
[2022-11-05] MEDS ORDERED: dilTIAZem HCL IVP 5 MG/ML VIAL IVP PRN (22:30)
[2022-11-06] VITALS (7 sets, daily range): BP systolic 139–150; PULSE 105–118; RESP 18–20; TEMP 97.1–97.9; O2SAT 93–100
[2022-11-06 05:29] LABS: BASOPHILS # (AUTO) 0.1 K/uL (0.0-0.2); BASOPHILS % (AUTO) 0.7 % (0.0-2.0); EOSINOPHILS # (AUTO) 0.1 K/uL (0.0-0.4); EOSINOPHILS % (AUTO) 1.4 % (0.0-4.0); HEMATOCRIT 30.5 % (36-54); HEMOGLOBIN 9.9 g/dL (14.0-18.0); LYMPHOCYTES # (AUTO) 0.6 K/uL (1.0-5.5); LYMPHOCYTES % (AUTO) 6.5 % (20.5-51.5); MEAN CORPUSCULAR HEMOGLOBIN 29 pg (27-31); MEAN CORPUSCULAR HGB CONC 32 % (32-36); MEAN CORPUSCULAR VOLUME 88 fL (79.0-98.0); MONOCYTES # (AUTO) 0.7 K/uL (0.0-1.0); MONOCYTES % (AUTO) 7.6 % (1.7-9.3); NEUTROPHILS # (AUTO) 8.1 K/uL (1.8-7.7); NEUTROPHILS % (AUTO) 83.8 % (40.0-70.0); PLATELET COUNT (AUTO) 343 K/uL (130-430); RED BLOOD CELL COUNT(AUTO) 3.45 MIL/uL (4.2-6.2); RED CELL DISTRIBUTION WIDTH 16.4 % (9.0-15.0); WHITE BLOOD COUNT (AUTO) 9.7 K/uL (4.8-10.8)
[2022-11-06 05:39] LABS: ERYTHROCYTE SEDIMENTATION RATE 58 MM/HR (0-15)
[2022-11-06 05:49] LABS: ALANINE AMINOTRANSFERASE 20 U/L (12-78); ALBUMIN 2.2 g/dL (3.4-4.8); ANION GAP 11 (5-15); ASPARTATE AMINOTRANSFERASE 20 U/L (10-37); CALCIUM 7.5 mg/dL (8.4-11.0); CARBON DIOXIDE 23 mmol/L (23-29); CHLORIDE 106 mmol/L (98-107); GLUCOSE 103 mg/dL (74-106); PHOSPHORUS 3.8 mg/dL (2.7-4.5); POTASSIUM 3.8 mmol/L (3.5-5.1); SODIUM SERUM 140 mmol/L (136-145); TOTAL BILIRUBIN 0.4 mg/dL (0.0-1.0); TOTAL PROTEIN, SERUM 6.9 g/dL (6.4-8.3); UREA NITROGEN, BLOOD 42 mg/dL (8-21)
[2022-11-06 06:04] LABS: INR 2.7 (0.80-1.20); PROTHROMBIN TIME 26.6 SECS (9.5-12.5)
[2022-11-06] MEDS: NORMAL SALINE 5 ML DISP.SYRIN IVF SCH ×3 (06:27→21:14)
[2022-11-06] MEDS: INSULIN NPH/REGULAR 70-30, 100 UNITS/ML, 3 ML VIAL SUBCUT SCH ×2 (06:28→21:11)
[2022-11-06] MEDS: POLYETHYLENE GLYCOL 3350, 17 GM/ POWD.PACK PO SCH (09:00)
[2022-11-06] MEDS ORDERED: SODIUM CL 3% FOR INHALATION 15 ML VIAL.NEB INH ONE (09:03)
[2022-11-06] MEDS: ATORVASTATIN 20 MG TABLET PO SCH (10:31)
[2022-11-06] MEDS: FAMOTIDINE 20 MG TABLET PO SCH ×2 (10:32→21:10)
[2022-11-06] MEDS: OMEGA-3/DHA/EPA/FISH OIL 1 GM CAPSULE PO SCH ×2 (10:34→21:10)
[2022-11-06] MEDS: SPIRONOLACTONE 25 MG TABLET (ALDACTONE) PO SCH (10:34)
[2022-11-06] MEDS: DIGOXIN 0.125 MG TABLET PO SCH (10:35)
[2022-11-06] MEDS: hydrALAZINE HCL 25 MG TABLET PO SCH ×3 (10:35→21:10)
[2022-11-06] MEDS: CHOLECALCIFEROL (VITAMIN D3) 2,000 UNIT TABLET PO SCH (10:36)
[2022-11-06] MEDS: EMPAGLIFLOZIN 10 MG TABLET PO SCH (10:36)
[2022-11-06] MEDS: metroNIDAZOLE 500 mg/NS 100 ML IV SCH ×2 (10:43→21:09)
[2022-11-06] MEDS: DILTIAZEM HCL 30 MG TABLET PO SCH ×2 (11:58→21:10)
[2022-11-06] MEDS ORDERED: WARFARIN SODIUM 1 MG TABLET PO SCH (18:00)
[2022-11-06] MEDS: METOPROLOL SUCCINATE 50 MG TAB.SR.24H (TOPROL XL) PO SCH (19:29)
[2022-11-07 00:22] VITALS: BP_SYST 138; PULSE 94; RESP 19; TEMP 97.5; O2SAT 95
[2022-11-07 06:10] LABS: HEMOGLOBIN 9.6 g/dL (14.0-18.0); LYMPHOCYTES # (AUTO) 0.8 K/uL (1.0-5.5); MEAN CORPUSCULAR HEMOGLOBIN 29 pg (27-31); MEAN CORPUSCULAR VOLUME 89 fL (79.0-98.0)
[2022-11-07] MEDS: DILTIAZEM HCL 30 MG TABLET PO SCH ×3 (06:13→23:29)
[2022-11-07] MEDS: NORMAL SALINE 5 ML DISP.SYRIN IVF SCH ×3 (06:17→21:34)
[2022-11-07 06:19] LABS: INR 2.2 (0.80-1.20); PROTHROMBIN TIME 22.3 SECS (9.5-12.5)
[2022-11-07 06:26] LABS: ANION GAP 10 (5-15); CALCIUM 7.7 mg/dL (8.4-11.0); CARBON DIOXIDE 24 mmol/L (23-29); CHLORIDE 105 mmol/L (98-107); CREATININE 2.97 mg/dL (0.55-1.30); GLUCOSE 184 mg/dL (74-106); POTASSIUM 4.1 mmol/L (3.5-5.1); SODIUM SERUM 139 mmol/L (136-145); UREA NITROGEN, BLOOD 44 mg/dL (8-21)
[2022-11-07] MEDS: INSULIN NPH/REGULAR 70-30, 100 UNITS/ML, 3 ML VIAL SUBCUT SCH ×2 (07:00→21:33)
[2022-11-07 07:54] LABS: HEMATOCRIT 29.7 % (36-54); MEAN CORPUSCULAR HGB CONC 32 % (32-36); RED BLOOD CELL COUNT(AUTO) 3.33 MIL/uL (4.2-6.2); WHITE BLOOD COUNT (AUTO) 9.8 K/uL (4.8-10.8)
[2022-11-07 07:55] LABS: BASOPHILS % (AUTO) 0.4 % (0.0-2.0); EOSINOPHILS # (AUTO) 0.2 K/uL (0.0-0.4); EOSINOPHILS % (AUTO) 1.6 % (0.0-4.0); LYMPHOCYTES % (AUTO) 8.4 % (20.5-51.5); MONOCYTES % (AUTO) 10.7 % (1.7-9.3); NEUTROPHILS # (AUTO) 7.8 K/uL (1.8-7.7); NEUTROPHILS % (AUTO) 78.9 % (40.0-70.0); PLATELET COUNT (AUTO) 347 K/uL (130-430); RED CELL DISTRIBUTION WIDTH 16.4 % (9.0-15.0)
[2022-11-07 08:00] VITALS: BP_SYST 141; RESP 16; TEMP 97.2; O2SAT 96
[2022-11-07] MEDS: POLYETHYLENE GLYCOL 3350, 17 GM/ POWD.PACK PO SCH (09:00)
[2022-11-07] MEDS: metroNIDAZOLE 500 mg/NS 100 ML IV SCH ×2 (09:06→21:28)
[2022-11-07] MEDS: ATORVASTATIN 20 MG TABLET PO SCH (09:12)
[2022-11-07] MEDS: SPIRONOLACTONE 25 MG TABLET (ALDACTONE) PO SCH (09:13)
[2022-11-07] MEDS: FAMOTIDINE 20 MG TABLET PO SCH ×2 (09:15→21:00)
[2022-11-07] MEDS: CHOLECALCIFEROL (VITAMIN D3) 2,000 UNIT TABLET PO SCH (09:16)
[2022-11-07] MEDS: hydrALAZINE HCL 25 MG TABLET PO SCH ×3 (09:16→21:27)
[2022-11-07] MEDS: EMPAGLIFLOZIN 10 MG TABLET PO SCH (09:18)
[2022-11-07] MEDS: DIGOXIN 0.125 MG TABLET PO SCH (09:19)
[2022-11-07 09:23] LABS: ERYTHROCYTE SEDIMENTATION RATE 59 MM/HR (0-15)
[2022-11-07] MEDS: OMEGA-3/DHA/EPA/FISH OIL 1 GM CAPSULE PO SCH ×2 (09:28→21:27)
[2022-11-07 11:49] VITALS: BP_SYST 155; PULSE 85; RESP 17; TEMP 98.4; O2SAT 95
[2022-11-07 12:00] VITALS: BP_SYST 140; PULSE 91; RESP 16; TEMP 98.2; O2SAT 96
[2022-11-07] MEDS ORDERED: WARFARIN SODIUM 2 MG TABLET PO SCH (18:00)
[2022-11-07 18:17] VITALS: BP_SYST 145; PULSE 80; RESP 16; TEMP 98; O2SAT 94
[2022-11-07 20:00] VITALS: BP_SYST 153; PULSE 95; RESP 20; TEMP 98.5; O2SAT 98
[2022-11-07] MEDS: METOPROLOL SUCCINATE 50 MG TAB.SR.24H (TOPROL XL) PO SCH (21:26)
[2022-11-08 00:40] VITALS: BP_SYST 157; PULSE 76; RESP 17; TEMP 96.5; O2SAT 96
[2022-11-08 06:31] LABS: BASOPHILS % (AUTO) 0.3 % (0.0-2.0); EOSINOPHILS # (AUTO) 0.2 K/uL (0.0-0.4); EOSINOPHILS % (AUTO) 2.2 % (0.0-4.0); HEMATOCRIT 32.6 % (36-54); HEMOGLOBIN 10.3 g/dL (14.0-18.0); LYMPHOCYTES # (AUTO) 1.6 K/uL (1.0-5.5); LYMPHOCYTES % (AUTO) 15.4 % (20.5-51.5); MEAN CORPUSCULAR HEMOGLOBIN 28 pg (27-31); MEAN CORPUSCULAR HGB CONC 32 % (32-36); MEAN CORPUSCULAR VOLUME 89 fL (79.0-98.0); MONOCYTES # (AUTO) 1.1 K/uL (0.0-1.0); MONOCYTES % (AUTO) 10.5 % (1.7-9.3); NEUTROPHILS # (AUTO) 7.5 K/uL (1.8-7.7); NEUTROPHILS % (AUTO) 71.6 % (40.0-70.0); PLATELET COUNT (AUTO) 400 K/uL (130-430); RED BLOOD CELL COUNT(AUTO) 3.66 MIL/uL (4.2-6.2); RED CELL DISTRIBUTION WIDTH 16.8 % (9.0-15.0); WHITE BLOOD COUNT (AUTO) 10.4 K/uL (4.8-10.8)
[2022-11-08 06:43] LABS: INR 2.1 (0.80-1.20); PROTHROMBIN TIME 20.9 SECS (9.5-12.5)
[2022-11-08 06:52] LABS: ANION GAP 10 (5-15); CALCIUM 7.9 mg/dL (8.4-11.0); CARBON DIOXIDE 23 mmol/L (23-29); CHLORIDE 106 mmol/L (98-107); CREATININE 2.91 mg/dL (0.55-1.30); GLUCOSE 58 mg/dL (74-106); PHOSPHORUS 3.8 mg/dL (2.7-4.5); POTASSIUM 4.1 mmol/L (3.5-5.1); SODIUM SERUM 139 mmol/L (136-145); UREA NITROGEN, BLOOD 47 mg/dL (8-21)
[2022-11-08] MEDS: DILTIAZEM HCL 30 MG TABLET PO SCH ×3 (06:55→20:52)
[2022-11-08] MEDS: NORMAL SALINE 5 ML DISP.SYRIN IVF SCH ×3 (06:55→20:52)
[2022-11-08] MEDS: INSULIN NPH/REGULAR 70-30, 100 UNITS/ML, 3 ML VIAL SUBCUT SCH ×2 (06:59→20:41)
[2022-11-08 07:47] LABS: ERYTHROCYTE SEDIMENTATION RATE 82 MM/HR (0-15)
[2022-11-08 08:00] VITALS: BP_SYST 134; PULSE 90; RESP 16; TEMP 97.8; O2SAT 97
[2022-11-08] MEDS: POLYETHYLENE GLYCOL 3350, 17 GM/ POWD.PACK PO SCH (09:00)
[2022-11-08] MEDS: hydrALAZINE HCL 25 MG TABLET PO SCH ×3 (09:22→20:50)
[2022-11-08] MEDS: FAMOTIDINE 20 MG TABLET PO SCH ×2 (09:23→20:51)
[2022-11-08] MEDS: OMEGA-3/DHA/EPA/FISH OIL 1 GM CAPSULE PO SCH ×2 (09:24→20:50)
[2022-11-08] MEDS: CHOLECALCIFEROL (VITAMIN D3) 2,000 UNIT TABLET PO SCH (09:24)
[2022-11-08] MEDS: DIGOXIN 0.125 MG TABLET PO SCH (09:26)
[2022-11-08] MEDS: ATORVASTATIN 20 MG TABLET PO SCH (09:26)
[2022-11-08] MEDS: SPIRONOLACTONE 25 MG TABLET (ALDACTONE) PO SCH (09:27)
[2022-11-08] MEDS: EMPAGLIFLOZIN 10 MG TABLET PO SCH (09:32)
[2022-11-08 12:23] VITALS: BP_SYST 144; PULSE 88; RESP 16; TEMP 97.6; O2SAT 98
[2022-11-08] MEDS: metroNIDAZOLE 500 mg/NS 100 ML IV SCH ×2 (12:38→21:00)
[2022-11-08] MEDS ORDERED: METR-154 PO (14:12)
[2022-11-08] MEDS ORDERED: LIP40 PO (14:12)
[2022-11-08] MEDS ORDERED: METO-542 PO (14:12)
[2022-11-08] MEDS ORDERED: FAMO20TA8 PO (14:12)
[2022-11-08] MEDS ORDERED: CAR30 PO (14:12)
[2022-11-08] MEDS ORDERED: LEVO250T73 PO (14:12)
[2022-11-08 16:40] VITALS: BP_SYST 148; PULSE 83; RESP 16; TEMP 98; O2SAT 93
[2022-11-08] MEDS ORDERED: WARFARIN SODIUM 3 MG TABLET PO SCH (18:00)
[2022-11-08 20:02] VITALS: BP_SYST 94; PULSE 83; RESP 16; TEMP 98.2; O2SAT 91
[2022-11-08] MEDS: METOPROLOL SUCCINATE 50 MG TAB.SR.24H (TOPROL XL) PO SCH (20:52)
== END 2022-11-08 22:00 | disposition home health service (06) | DRG 871 ==
LOC: SED 03:54 → STU 07:54
PROVIDERS: ADMIT Preventive Medicine Preventive Medicine/Occupational Environmental Medicine; ATTEND Preventive Medicine Preventive Medicine/Occupational Environmental Medicine
DX: A41.9 Sepsis, unspecified organism (principal); I50.43 Acute on chronic combined systolic (congestive) and diastolic (congestive) heart failure; J18.9 Pneumonia, unspecified organism; J96.01 Acute respiratory failure with hypoxia; N17.0 Acute kidney failure with tubular necrosis; I48.20 Chronic atrial fibrillation, unspecified; M48.54XA Collapsed vertebra, not elsewhere classified, thoracic region, initial encounter for fracture; D68.59 Other primary thrombophilia; M54.9 Dorsalgia, unspecified; E11.65 Type 2 diabetes mellitus with hyperglycemia; I25.10 Atherosclerotic heart disease of native coronary artery without angina pectoris; G89.29 Other chronic pain; E88.09 Other disorders of plasma-protein metabolism, not elsewhere classified; E78.5 Hyperlipidemia, unspecified; D72.829 Elevated white blood cell count, unspecified; K80.20 Calculus of gallbladder without cholecystitis without obstruction; K57.90 Diverticulosis of intestine, part unspecified, without perforation or abscess without bleeding; E83.51 Hypocalcemia; I12.9 Hypertensive chronic kidney disease with stage 1 through stage 4 chronic kidney disease, or unspecified chronic kidney disease; Z20.822 Contact with and (suspected) exposure to COVID-19; E11.22 Type 2 diabetes mellitus with diabetic chronic kidney disease; N18.9 Chronic kidney disease, unspecified; K62.89 Other specified diseases of anus and rectum; D64.9 Anemia, unspecified; Z95.1 Presence of aortocoronary bypass graft; Z79.899 Other long term (current) drug therapy; Z95.2 Presence of prosthetic heart valve; Z79.01 Long term (current) use of anticoagulants
CPT/HCPCS: 36415; 71045; 76376; 76770; 80048; 80053; 80162; 81000; 82962; 83605; 83735; 83880; 84100; 84443; 84484; 85025; 85610-TC; 85651-TC; 86738; 87040; 87449; 93005; 94640; 94760; 96374; 96375; 97110-GP; 97116-GP; 97530-GP; 99291; G0378; J0696; J1815; J3490; J7050; J7060; J7131

== ENCOUNTER 2023-03-25 21:43 | Inpatient (IN) | payer MEDICARE, OTHER ==
[~2023-03-25] VITALS: Ht 177.8 cm; Wt 71.2 kg
[~2023-03-25 21:43] MED LIST changes: -AMLO2.5T2 PO; +CAR30 PO; +FAMO20TA8 PO; +LEVO250T73 PO; +METO-542 PO; -METO100T14 PO; -METO50TA7 PO; +METR-154 PO; -SPIR25OR PO
[2023-03-25 21:49] VITALS: BP_SYST 115; PULSE 118; RESP 18; TEMP 96.8; O2SAT 100
[2023-03-25 23:23] LABS: BASOPHILS % (AUTO) 0.9 % (0.0-2.0); EOSINOPHILS % (AUTO) 0.4 % (0.0-4.0); HEMATOCRIT 35.2 % (36-54); HEMOGLOBIN 11.1 g/dL (14.0-18.0); LYMPHOCYTES # (AUTO) 0.7 K/uL (1.0-5.5); LYMPHOCYTES % (AUTO) 15.1 % (20.5-51.5); MEAN CORPUSCULAR HEMOGLOBIN 26 pg (27-31); MEAN CORPUSCULAR HGB CONC 32 % (32-36); MEAN CORPUSCULAR VOLUME 82 fL (79.0-98.0); MONOCYTES # (AUTO) 0.4 K/uL (0.0-1.0); MONOCYTES % (AUTO) 8.3 % (1.7-9.3); NEUTROPHILS # (AUTO) 3.3 K/uL (1.8-7.7); NEUTROPHILS % (AUTO) 75.3 % (40.0-70.0); PLATELET COUNT (AUTO) 263 K/uL (130-430); RED BLOOD CELL COUNT(AUTO) 4.28 MIL/uL (4.2-6.2); RED CELL DISTRIBUTION WIDTH 22.9 % (9.0-15.0); WHITE BLOOD COUNT (AUTO) 4.4 K/uL (4.8-10.8)
[2023-03-25 23:40] LABS: ANION GAP 9 (5-15); CALCIUM 7.2 mg/dL (8.4-11.0); CARBON DIOXIDE 28 mmol/L (23-29); CHLORIDE 94 mmol/L (98-107); CREATININE 3.93 mg/dL (0.55-1.30); GLUCOSE 216 mg/dL (74-106); POTASSIUM 3.9 mmol/L (3.5-5.1); SODIUM SERUM 131 mmol/L (136-145); UREA NITROGEN, BLOOD 78 mg/dL (8-21)
[2023-03-25 23:47] LABS: ALANINE AMINOTRANSFERASE 20 U/L (12-78); ALBUMIN 2.5 g/dL (3.4-4.8); ASPARTATE AMINOTRANSFERASE 19 U/L (10-37); LIPASE 21 U/L (16-77); TOTAL PROTEIN, SERUM 7.4 g/dL (6.4-8.3)
[2023-03-26] MEDS ORDERED: FUROSEMIDE 100 MG/10 ML VIAL IVP ONE (00:15)
[2023-03-26] MEDS ORDERED: cefTRIAXone 1 GM VIAL IM ONE (00:15)
[2023-03-26] MEDS ORDERED: ONDANSETRON HCL 4 MG/2 ML VIAL IVP PRN (00:45)
[2023-03-26] MEDS ORDERED: WARF4TAB72 PO (00:59)
[2023-03-26] MEDS ORDERED: FER300L PO (00:59)
[2023-03-26] MEDS ORDERED: TOPXL100 PO (00:59)
[2023-03-26] MEDS ORDERED: POTA-197 PO (00:59)
[2023-03-26] MEDS ORDERED: cefTRIAXone 1 GM in D5W 50 ML IV ONE (01:30)
[2023-03-26 01:35] LABS: ALANINE AMINOTRANSFERASE 17 U/L (12-78); ALBUMIN 2.4 g/dL (3.4-4.8); ANION GAP 9 (5-15); ASPARTATE AMINOTRANSFERASE 23 U/L (10-37); CARBON DIOXIDE 27 mmol/L (23-29); CHLORIDE 94 mmol/L (98-107); CREATININE 4.07 mg/dL (0.55-1.30); GLUCOSE 206 mg/dL (74-106); SODIUM SERUM 130 mmol/L (136-145); TOTAL BILIRUBIN 0.9 mg/dL (0.0-1.0); TOTAL PROTEIN, SERUM 7.2 g/dL (6.4-8.3); UREA NITROGEN, BLOOD 82 mg/dL (8-21)
[2023-03-26 01:36] LABS: CALCIUM 6.8 mg/dL (8.4-11.0)
[2023-03-26 02:20] VITALS: BP_SYST 105; PULSE 120; RESP 18; TEMP 97
[2023-03-26 07:31] LABS: BASOPHILS % (AUTO) 0.7 % (0.0-2.0); EOSINOPHILS % (AUTO) 1.3 % (0.0-4.0); HEMATOCRIT 34.6 % (36-54); LYMPHOCYTES # (AUTO) 0.7 K/uL (1.0-5.5); LYMPHOCYTES % (AUTO) 19.3 % (20.5-51.5); MEAN CORPUSCULAR HEMOGLOBIN 26 pg (27-31); MEAN CORPUSCULAR HGB CONC 32 % (32-36); MEAN CORPUSCULAR VOLUME 82 fL (79.0-98.0); MONOCYTES # (AUTO) 0.4 K/uL (0.0-1.0); MONOCYTES % (AUTO) 11.2 % (1.7-9.3); NEUTROPHILS # (AUTO) 2.6 K/uL (1.8-7.7); NEUTROPHILS % (AUTO) 67.5 % (40.0-70.0); PLATELET COUNT (AUTO) 263 K/uL (130-430); RED BLOOD CELL COUNT(AUTO) 4.22 MIL/uL (4.2-6.2); RED CELL DISTRIBUTION WIDTH 22.6 % (9.0-15.0); WHITE BLOOD COUNT (AUTO) 3.8 K/uL (4.8-10.8)
[2023-03-26 08:00] VITALS: BP_SYST 109; PULSE 95; RESP 18; TEMP 97.2; O2SAT 93
[2023-03-26 08:45] LABS: ANISOCYTOSIS 2+; HYPOCHROMASIA 1+; OVALOCYTES FEW; TARGET CELLS FEW
[2023-03-26] MEDS ORDERED: FUROSEMIDE 20 MG/2 ML VIAL IVP SCH ×2 (09:00→21:00)
[2023-03-26] MEDS ORDERED: CARVEDILOL 3.125 MG TABLET (COREG) PO ONE (10:00)
[2023-03-26] MEDS ORDERED: FUROSEMIDE 40 MG/4 ML VIAL IVP ONE (10:00)
[2023-03-26 10:48] LABS: INR 4.7 (0.80-1.20); PROTHROMBIN TIME 45.7 SECS (9.5-12.5)
[2023-03-26 11:19] VITALS: BP_SYST 126; PULSE 126; RESP 16; TEMP 97.2; O2SAT 96
[2023-03-26] MEDS ORDERED: DILTIAZEM HCL 30 MG TABLET PO ONE (12:00)
[2023-03-26] MEDS ORDERED: DEXTROSE 50% JECT 50 ML DISP.SYRIN IVP PRN (12:00)
[2023-03-26] MEDS ORDERED: GLUCOSE (DEXTROSE) ORAL GEL -Adults PO PRN (12:00)
[2023-03-26] MEDS ORDERED: DIGOXIN 0.5 MG/2 ML AMP IVP ONE ×2 (12:30→18:00)
[2023-03-26] MEDS ORDERED: DILTIAZEM HCL 30 MG TABLET PO SCH ×2 (14:00→22:00)
[2023-03-26] MEDS: FUROSEMIDE 40 MG/4 ML VIAL IVP SCH ×2 (14:07→22:18)
[2023-03-26 15:07] VITALS: BP_SYST 104; PULSE 87; RESP 16; TEMP 97.6; O2SAT 95
[2023-03-26] MEDS: INSULIN REGULAR, HUMAN 100 UNITS/ML, 3 ML VIAL (humuLIN R) SUBCUT PRN (17:34)
[2023-03-26 20:00] VITALS: BP_SYST 112; PULSE 100; RESP 18; TEMP 97; O2SAT 96
[2023-03-26] MEDS ORDERED: CARVEDILOL 3.125 MG TABLET (COREG) PO SCH (21:00)
[2023-03-26] MEDS ORDERED: FUROSEMIDE 40 MG/4 ML VIAL IVP SCH (21:00)
[2023-03-26] MEDS: ATORVASTATIN 20 MG TABLET PO SCH (22:14)
[2023-03-26] MEDS: METOPROLOL TARTRATE 50 MG TABLET PO SCH (22:14)
[2023-03-27] MEDS ORDERED: DIGOXIN 0.5 MG/2 ML AMP IVP ONE
[2023-03-27 00:05] VITALS: BP_SYST 102; PULSE 76; RESP 15; TEMP 96.5; O2SAT 95
[2023-03-27 05:34] LABS: BASOPHILS % (AUTO) 0.3 % (0.0-2.0); EOSINOPHILS # (AUTO) 0.1 K/uL (0.0-0.4); EOSINOPHILS % (AUTO) 1.6 % (0.0-4.0); HEMATOCRIT 32.5 % (36-54); HEMOGLOBIN 10.3 g/dL (14.0-18.0); LYMPHOCYTES # (AUTO) 0.6 K/uL (1.0-5.5); LYMPHOCYTES % (AUTO) 15.1 % (20.5-51.5); MEAN CORPUSCULAR HEMOGLOBIN 26 pg (27-31); MEAN CORPUSCULAR HGB CONC 32 % (32-36); MEAN CORPUSCULAR VOLUME 82 fL (79.0-98.0); MONOCYTES # (AUTO) 0.5 K/uL (0.0-1.0); MONOCYTES % (AUTO) 10.8 % (1.7-9.3); NEUTROPHILS # (AUTO) 3.1 K/uL (1.8-7.7); NEUTROPHILS % (AUTO) 72.2 % (40.0-70.0); PLATELET COUNT (AUTO) 247 K/uL (130-430); RED BLOOD CELL COUNT(AUTO) 3.97 MIL/uL (4.2-6.2); RED CELL DISTRIBUTION WIDTH 22.1 % (9.0-15.0); WHITE BLOOD COUNT (AUTO) 4.2 K/uL (4.8-10.8)
[2023-03-27 06:10] LABS: ALANINE AMINOTRANSFERASE 17 U/L (12-78); ALBUMIN 2.2 g/dL (3.4-4.8); ANION GAP 9 (5-15); ASPARTATE AMINOTRANSFERASE 19 U/L (10-37); CALCIUM 7.1 mg/dL (8.4-11.0); CARBON DIOXIDE 30 mmol/L (23-29); CHLORIDE 98 mmol/L (98-107); CREATININE 3.73 mg/dL (0.55-1.30); GLUCOSE 91 mg/dL (74-106); POTASSIUM 3.7 mmol/L (3.5-5.1); SODIUM SERUM 137 mmol/L (136-145); TOTAL BILIRUBIN 0.8 mg/dL (0.0-1.0); TOTAL PROTEIN, SERUM 6.7 g/dL (6.4-8.3); UREA NITROGEN, BLOOD 78 mg/dL (8-21)
[2023-03-27] MEDS: FUROSEMIDE 40 MG/4 ML VIAL IVP SCH ×3 (06:38→21:23)
[2023-03-27 07:02] LABS: INR 4.8 (0.80-1.20); PROTHROMBIN TIME 46.4 SECS (9.5-12.5)
[2023-03-27 08:00] VITALS: BP_SYST 115; PULSE 72; RESP 16; TEMP 97.3; O2SAT 96
[2023-03-27] MEDS: METOPROLOL TARTRATE 50 MG TABLET PO SCH ×3 (09:00→21:22)
[2023-03-27] MEDS ORDERED: PHYTONADIONE 10 MG/ML AMP ONE (10:45)
[2023-03-27] MEDS ORDERED: PHYTONADIONE 10 MG in NS 50 ML IV ONE (11:00)
[2023-03-27 12:00] VITALS: BP_SYST 120; PULSE 62; RESP 16; TEMP 97; O2SAT 96
[2023-03-27] MEDS ORDERED: DIGOXIN 0.25 MG TABLET PO ONE (12:00)
[2023-03-27 16:00] VITALS: BP_SYST 124; PULSE 67; RESP 16; TEMP 97.7; O2SAT 96
[2023-03-27 20:15] VITALS: BP_SYST 128; PULSE 82; RESP 20; TEMP 98.5; O2SAT 100
[2023-03-27 20:30] VITALS: O2SAT 100
[2023-03-27] MEDS: ATORVASTATIN 20 MG TABLET PO SCH (21:21)
[2023-03-27] MEDS: INSULIN REGULAR, HUMAN 100 UNITS/ML, 3 ML VIAL (humuLIN R) SUBCUT PRN (21:32)
[2023-03-28 01:02] VITALS: BP_SYST 114; PULSE 89; RESP 17; TEMP 97.6; O2SAT 96
[2023-03-28] MEDS: METOPROLOL TARTRATE 50 MG TABLET PO SCH (06:25)
[2023-03-28] MEDS: FUROSEMIDE 40 MG/4 ML VIAL IVP SCH ×3 (06:26→21:52)
[2023-03-28 07:23] LABS: BASOPHILS % (AUTO) 0.4 % (0.0-2.0); EOSINOPHILS # (AUTO) 0.1 K/uL (0.0-0.4); EOSINOPHILS % (AUTO) 1.5 % (0.0-4.0); HEMATOCRIT 32.5 % (36-54); HEMOGLOBIN 10.5 g/dL (14.0-18.0); LYMPHOCYTES # (AUTO) 0.8 K/uL (1.0-5.5); LYMPHOCYTES % (AUTO) 17.8 % (20.5-51.5); MEAN CORPUSCULAR HEMOGLOBIN 27 pg (27-31); MEAN CORPUSCULAR HGB CONC 32 % (32-36); MEAN CORPUSCULAR VOLUME 82 fL (79.0-98.0); MONOCYTES # (AUTO) 0.5 K/uL (0.0-1.0); MONOCYTES % (AUTO) 12.4 % (1.7-9.3); NEUTROPHILS % (AUTO) 67.9 % (40.0-70.0); PLATELET COUNT (AUTO) 233 K/uL (130-430); RED BLOOD CELL COUNT(AUTO) 3.96 MIL/uL (4.2-6.2); RED CELL DISTRIBUTION WIDTH 22.5 % (9.0-15.0); WHITE BLOOD COUNT (AUTO) 4.4 K/uL (4.8-10.8)
[2023-03-28 07:46] LABS: INR 1.7 (0.80-1.20); PROTHROMBIN TIME 17.2 SECS (9.5-12.5)
[2023-03-28 08:11] LABS: ALANINE AMINOTRANSFERASE 18 U/L (12-78); ALBUMIN 2.2 g/dL (3.4-4.8); ANION GAP 8 (5-15); ASPARTATE AMINOTRANSFERASE 25 U/L (10-37); CARBON DIOXIDE 30 mmol/L (23-29); CHLORIDE 100 mmol/L (98-107); CREATININE 3.38 mg/dL (0.55-1.30); GLUCOSE 56 mg/dL (74-106); POTASSIUM 3.1 mmol/L (3.5-5.1); SODIUM SERUM 138 mmol/L (136-145); TOTAL BILIRUBIN 0.8 mg/dL (0.0-1.0); TOTAL PROTEIN, SERUM 6.6 g/dL (6.4-8.3); UREA NITROGEN, BLOOD 73 mg/dL (8-21)
[2023-03-28 08:39] LABS: CALCIUM 6.6 mg/dL (8.4-11.0)
[2023-03-28 09:07] VITALS: BP_SYST 122; PULSE 79; RESP 16; TEMP 97.9; O2SAT 100
[2023-03-28] MEDS: DIGOXIN 0.25 MG TABLET PO SCH (09:44)
[2023-03-28] MEDS ORDERED: CALCIUM CARBONATE/VITAMIN D3 1 TAB TABLET PO ONE (10:45)
[2023-03-28] MEDS ORDERED: CALCIUM 600/VIT D PO ONE (11:00)
[2023-03-28 11:15] VITALS: BP_SYST 127; PULSE 76; RESP 16; TEMP 98.1; O2SAT 98
[2023-03-28] MEDS ORDERED: POTASSIUM CHLORIDE 40 MEQ, LIDOCAINE JECT 2% PF 100 MG 50 MG in NS 250 ML IV ONE (12:00)
[2023-03-28 12:54] LABS: INR 1.5 (0.80-1.20); PROTHROMBIN TIME 15.4 SECS (9.5-12.5)
[2023-03-28] MEDS: INSULIN REGULAR, HUMAN 100 UNITS/ML, 3 ML VIAL (humuLIN R) SUBCUT PRN ×3 (13:05→21:46)
[2023-03-28] MEDS: ISOSORBIDE DINITRATE 10 MG TABLET (ISORDIL) PO SCH ×2 (14:34→21:51)
[2023-03-28] MEDS: hydrALAZINE HCL 10 MG TABLET PO SCH ×2 (14:34→21:50)
[2023-03-28 15:12] VITALS: BP_SYST 115; PULSE 101; RESP 16; TEMP 97; O2SAT 93
[2023-03-28] MEDS: WARFARIN SODIUM 4 MG TABLET PO SCH (17:58)
[2023-03-28 20:21] VITALS: BP_SYST 114; PULSE 84; RESP 20; TEMP 97.1; O2SAT 97
[2023-03-28] MEDS: ATORVASTATIN 20 MG TABLET PO SCH (20:28)
[2023-03-28] MEDS: CALCIUM CARBONATE/VITAMIN D3 1 TAB TABLET PO SCH (20:28)
[2023-03-28 20:30] VITALS: O2SAT 97
[2023-03-29] VITALS: BP_SYST 108; PULSE 77; RESP 18; TEMP 97; O2SAT 98
[2023-03-29 06:28] LABS: BASOPHILS % (AUTO) 0.3 % (0.0-2.0); EOSINOPHILS % (AUTO) 0.7 % (0.0-4.0); HEMATOCRIT 30.8 % (36-54); HEMOGLOBIN 9.9 g/dL (14.0-18.0); LYMPHOCYTES # (AUTO) 0.6 K/uL (1.0-5.5); LYMPHOCYTES % (AUTO) 11.5 % (20.5-51.5); MEAN CORPUSCULAR HEMOGLOBIN 26 pg (27-31); MEAN CORPUSCULAR HGB CONC 32 % (32-36); MEAN CORPUSCULAR VOLUME 82 fL (79.0-98.0); MONOCYTES # (AUTO) 0.6 K/uL (0.0-1.0); MONOCYTES % (AUTO) 10.6 % (1.7-9.3); NEUTROPHILS % (AUTO) 76.9 % (40.0-70.0); PLATELET COUNT (AUTO) 225 K/uL (130-430); RED BLOOD CELL COUNT(AUTO) 3.77 MIL/uL (4.2-6.2); RED CELL DISTRIBUTION WIDTH 22.5 % (9.0-15.0); WHITE BLOOD COUNT (AUTO) 5.2 K/uL (4.8-10.8)
[2023-03-29] MEDS: FUROSEMIDE 40 MG/4 ML VIAL IVP SCH (06:31)
[2023-03-29] MEDS: hydrALAZINE HCL 10 MG TABLET PO SCH ×2 (06:32→17:08)
[2023-03-29] MEDS: ISOSORBIDE DINITRATE 10 MG TABLET (ISORDIL) PO SCH ×2 (06:32→17:08)
[2023-03-29 06:48] LABS: INR 1.4 (0.80-1.20); PROTHROMBIN TIME 14.4 SECS (9.5-12.5)
[2023-03-29 07:17] LABS: ALANINE AMINOTRANSFERASE 14 U/L (12-78); ALBUMIN 2.1 g/dL (3.4-4.8); ANION GAP 8 (5-15); ASPARTATE AMINOTRANSFERASE 22 U/L (10-37); CALCIUM 7.4 mg/dL (8.4-11.0); CARBON DIOXIDE 30 mmol/L (23-29); CHLORIDE 101 mmol/L (98-107); CREATININE 3.01 mg/dL (0.55-1.30); DIGOXIN 1.7 ng/mL (0.80-2.00); GLUCOSE 109 mg/dL (74-106); SODIUM SERUM 139 mmol/L (136-145); TOTAL BILIRUBIN 0.8 mg/dL (0.0-1.0); TOTAL PROTEIN, SERUM 6.5 g/dL (6.4-8.3); UREA NITROGEN, BLOOD 67 mg/dL (8-21)
[2023-03-29 08:00] VITALS: BP_SYST 114; PULSE 69; RESP 18; TEMP 97.7; O2SAT 96
[2023-03-29] MEDS ORDERED: METOPROLOL SUCCINATE 50 MG TAB.SR.24H (TOPROL XL) PO SCH (09:00)
[2023-03-29] MEDS: DIGOXIN 0.25 MG TABLET PO SCH (09:04)
[2023-03-29] MEDS: CALCIUM CARBONATE/VITAMIN D3 1 TAB TABLET PO SCH (09:04)
[2023-03-29] MEDS ORDERED: POTASSIUM CHLORIDE 40 MEQ, LIDOCAINE JECT 2% PF 100 MG 50 MG in NS 250 ML IV ONE (09:45)
[2023-03-29] MEDS ORDERED: ACETAMINOPHEN 500 MG TABLET PO PRN (11:00)
[2023-03-29] MEDS: INSULIN REGULAR, HUMAN 100 UNITS/ML, 3 ML VIAL (humuLIN R) SUBCUT PRN (12:14)
[2023-03-29 12:17] VITALS: BP_SYST 117; PULSE 68; RESP 16; TEMP 98.1; O2SAT 98
[2023-03-29] MEDS ORDERED: *LOVENOX 1MG/KG Q12H/PHARMACY XX ONE (12:30)
[2023-03-29] MEDS ORDERED: ENOXAPARIN SODIUM 80 MG/0.8 ML SYRINGE SUBCUT ONE (14:00)
[2023-03-29] MEDS ORDERED: HYDR-4037 PO (14:13)
[2023-03-29] MEDS ORDERED: LIP20 PO (14:13)
[2023-03-29] MEDS ORDERED: FURO-149 PO (14:13)
[2023-03-29] MEDS ORDERED: DIGO250T PO (14:13)
[2023-03-29] MEDS ORDERED: METO-542 PO (14:13)
[2023-03-29] MEDS ORDERED: LOVI80 SUBCUT (14:13)
[2023-03-29] MEDS ORDERED: ISO10 PO (14:13)
[2023-03-29 16:00] VITALS: BP_SYST 127; PULSE 89; RESP 18; TEMP 98.6; O2SAT 98
[2023-03-29] MEDS: WARFARIN SODIUM 4 MG TABLET PO SCH (17:16)
[2023-03-29 18:23] VITALS: BP_SYST 127; PULSE 89; RESP 16; TEMP 98.6; O2SAT 98
[2023-03-29] MEDS ORDERED: FUROSEMIDE 40 MG TABLET PO SCH (21:00)
[2023-03-30] MEDS ORDERED: ENOXAPARIN SODIUM 80 MG/0.8 ML SYRINGE SUBCUT SCH (09:00)
[2023-03-30] MEDS ORDERED: POTASSIUM CHLORIDE 20 MEQ/PKT PACKET PO SCH (09:00)
== END 2023-03-29 18:55 | disposition home or self-care (01) | DRG 291 ==
LOC: SED 21:43 → STU 03-26 00:44
PROVIDERS: ADMIT Family Medicine; ATTEND Family Medicine
DX: I13.0 Hypertensive heart and chronic kidney disease with heart failure and stage 1 through stage 4 chronic kidney disease, or unspecified chronic kidney disease (principal); E43 Unspecified severe protein-calorie malnutrition; I50.23 Acute on chronic systolic (congestive) heart failure; N17.9 Acute kidney failure, unspecified; E87.1 Hypo-osmolality and hyponatremia; N18.4 Chronic kidney disease, stage 4 (severe); D68.69 Other thrombophilia; I25.10 Atherosclerotic heart disease of native coronary artery without angina pectoris; I48.91 Unspecified atrial fibrillation; E78.5 Hyperlipidemia, unspecified; E11.22 Type 2 diabetes mellitus with diabetic chronic kidney disease; E83.51 Hypocalcemia; D63.1 Anemia in chronic kidney disease; Z95.1 Presence of aortocoronary bypass graft; Z79.01 Long term (current) use of anticoagulants; Z79.4 Long term (current) use of insulin; Z79.899 Other long term (current) drug therapy
CPT/HCPCS: 36415; 71045; 76700-TC; 80053; 80162; 82962; 83037; 83690; 83735; 83880; 84484; 85025; 85610-TC; 85730-TC; 93005; 93306; 96365; 96375; 97110-GP; 97116-GP; 97530-GP; 99291; G0378; J0696; J1160; J1650; J1815; J1940; J3430; J3480; J7050; J7060

== ENCOUNTER 2023-05-04 04:08 | Emergency (ER) | payer MEDICARE, OTHER ==
[~2023-05-04] VITALS: Ht 170.2 cm; Wt 68.0 kg
[~2023-05-04 04:08] MED LIST changes: -CAR30 PO; -DICL20GE TP; -DIGO125T PO; +DIGO250T PO; -FAMO20TA8 PO; +FER300L PO; +FURO-149 PO; -HYDR-3917 PO; +HYDR-4037 PO; -HYDR-4038 PO; -INSNLG7030 SUBCUT; +ISO10 PO; -LEVO250T73 PO; +LIP20 PO; -LIP40 PO; -LISI40TA13 PO; +LOVI80 SUBCUT; -METR-154 PO; -NOR10 PO; +POTA-197 PO; -SPIR25TA6 PO; +WARF4TAB72 PO
[2023-05-04 04:18] VITALS: BP_SYST 138; PULSE 122; RESP 20; TEMP 98.3; O2SAT 97
[2023-05-04 06:21] LABS: BILIRUBIN,URINE NEGATIVE (NEGATIVE); BLOOD, URINE NEGATIVE (NEGATIVE); CLARITY/URINE CLEAR (CLEAR); COLOR,URINE YELLOW (YELLOW); GLUCOSE,URINE TRACE (NEGATIVE); KETONES,URINE NEGATIVE (NEGATIVE); LEUKOCYTE ESTERASE ,URINE NEGATIVE (NEGATIVE); NITRITE, URINE NEGATIVE (NEGATIVE); PROTEIN URINE 3+ (NEGATIVE); UROBILINOGEN,URINE 0.2 (0.2-1.0)
[2023-05-04 06:32] LABS: BACTERIA,URINE None Seen /HPF (None Seen); RBC,URINE 0-3 /HPF (0-3); WBC,URINE 0-3 /HPF (0-3)
[2023-05-04 06:40] LABS: BASOPHILS % (AUTO) 0.5 % (0.0-2.0); EOSINOPHILS # (AUTO) 0.1 K/uL (0.0-0.4); EOSINOPHILS % (AUTO) 2.9 % (0.0-4.0); HEMATOCRIT 33.6 % (36-54); HEMOGLOBIN 11.3 g/dL (14.0-18.0); LYMPHOCYTES # (AUTO) 0.6 K/uL (1.0-5.5); LYMPHOCYTES % (AUTO) 12.9 % (20.5-51.5); MEAN CORPUSCULAR HEMOGLOBIN 28 pg (27-31); MEAN CORPUSCULAR HGB CONC 34 % (32-36); MEAN CORPUSCULAR VOLUME 84 fL (79.0-98.0); MONOCYTES # (AUTO) 0.4 K/uL (0.0-1.0); NEUTROPHILS # (AUTO) 3.4 K/uL (1.8-7.7); NEUTROPHILS % (AUTO) 74.7 % (40.0-70.0); PLATELET COUNT (AUTO) 235 K/uL (130-430); RED CELL DISTRIBUTION WIDTH 18.4 % (9.0-15.0); WHITE BLOOD COUNT (AUTO) 4.5 K/uL (4.8-10.8)
[2023-05-04 07:02] LABS: ANION GAP 11 (5-15); CARBON DIOXIDE 28 mmol/L (23-29); CHLORIDE 99 mmol/L (98-107); CREATININE 3.27 mg/dL (0.55-1.30); GLUCOSE 188 mg/dL (74-106); POTASSIUM 3.4 mmol/L (3.5-5.1); SODIUM SERUM 138 mmol/L (136-145); UREA NITROGEN, BLOOD 65 mg/dL (8-21)
[2023-05-04 07:11] LABS: ALANINE AMINOTRANSFERASE 24 U/L (12-78); ALBUMIN 2.8 g/dL (3.4-4.8); ASPARTATE AMINOTRANSFERASE 27 U/L (10-37); LIPASE 22 U/L (16-77); TOTAL PROTEIN, SERUM 8.4 g/dL (6.4-8.3)
[2023-05-04] MEDS ORDERED: PRED50TA PO ×2 (07:39→08:46)
[2023-05-04] MEDS ORDERED: HYDR50TA61 PO ×2 (07:39→08:46)
[2023-05-04] MEDS ORDERED: METOPROLOL TARTRATE 5 MG/5 ML VIAL IVP ONE (07:45)
[2023-05-04] MEDS ORDERED: dilTIAZem HCL IVP 5 MG/ML VIAL IVP ONE (08:15)
[2023-05-04 08:53] VITALS: BP_SYST 130; PULSE 84; RESP 18; TEMP 98.4; O2SAT 96
== END 2023-05-04 08:52 | disposition home or self-care (01) ==
LOC: SED 04:08
DX: L29.9 Pruritus, unspecified (principal); E11.9 Type 2 diabetes mellitus without complications; I10 Essential (primary) hypertension; E78.5 Hyperlipidemia, unspecified; Z79.899 Other long term (current) drug therapy
CPT/HCPCS: 99285; 96374; 96375; 80053; 81001; 83690; 85025; 36415; 93005; 81000; 81015; J3490 ×2

== ENCOUNTER 2023-06-07 18:42 | Inpatient (IN) | payer MEDICARE, OTHER ==
[~2023-06-07] VITALS: Ht 170.2 cm; Wt 68.9 kg
[~2023-06-07 18:42] MED LIST changes: +HYDR50TA61 PO; -LOVI80 SUBCUT; +PRED50TA PO
[2023-06-07 18:46] VITALS: BP_SYST 127; PULSE 123; RESP 16; TEMP 97.7; O2SAT 95
[2023-06-07 19:35] LABS: BASOPHILS % (AUTO) 0.7 % (0.0-2.0); EOSINOPHILS % (AUTO) 1.1 % (0.0-4.0); HEMATOCRIT 31.9 % (36-54); HEMOGLOBIN 10.7 g/dL (14.0-18.0); LYMPHOCYTES # (AUTO) 0.6 K/uL (1.0-5.5); LYMPHOCYTES % (AUTO) 16.2 % (20.5-51.5); MEAN CORPUSCULAR HEMOGLOBIN 28 pg (27-31); MEAN CORPUSCULAR HGB CONC 33 % (32-36); MEAN CORPUSCULAR VOLUME 84 fL (79.0-98.0); MONOCYTES # (AUTO) 0.5 K/uL (0.0-1.0); MONOCYTES % (AUTO) 12.6 % (1.7-9.3); NEUTROPHILS # (AUTO) 2.7 K/uL (1.8-7.7); NEUTROPHILS % (AUTO) 69.4 % (40.0-70.0); PLATELET COUNT (AUTO) 359 K/uL (130-430); RED BLOOD CELL COUNT(AUTO) 3.79 MIL/uL (4.2-6.2); RED CELL DISTRIBUTION WIDTH 17.9 % (9.0-15.0); WHITE BLOOD COUNT (AUTO) 3.8 K/uL (4.8-10.8)
[2023-06-07 19:45] LABS: ANION GAP 9 (5-15); CALCIUM 7.3 mg/dL (8.4-11.0); CARBON DIOXIDE 30 mmol/L (23-29); CHLORIDE 99 mmol/L (98-107); CREATININE 2.85 mg/dL (0.55-1.30); GLUCOSE 131 mg/dL (74-106); POTASSIUM 3.8 mmol/L (3.5-5.1); SODIUM SERUM 138 mmol/L (136-145); UREA NITROGEN, BLOOD 52 mg/dL (8-21)
[2023-06-07 20:02] LABS: BILIRUBIN,URINE NEGATIVE (NEGATIVE); CLARITY/URINE CLEAR (CLEAR); COLOR,URINE YELLOW (YELLOW); GLUCOSE,URINE TRACE (NEGATIVE); KETONES,URINE NEGATIVE (NEGATIVE); LEUKOCYTE ESTERASE ,URINE TRACE (NEGATIVE); NITRITE, URINE NEGATIVE (NEGATIVE); PROTEIN URINE 2+ (NEGATIVE); UROBILINOGEN,URINE 0.2 (0.2-1.0)
[2023-06-07 20:12] LABS: BLOOD, URINE TRACE (NEGATIVE)
[2023-06-07 20:18] LABS: ALANINE AMINOTRANSFERASE 36 U/L (12-78); ALBUMIN 2.5 g/dL (3.4-4.8); AMYLASE 47 U/L (0-100); ASPARTATE AMINOTRANSFERASE 35 U/L (10-37); BILIRUBIN,DIRECT 0.8 mg/dL (0.0-0.3); LIPASE 15 U/L (16-77); TOTAL BILIRUBIN 1.2 mg/dL (0.0-1.0)
[2023-06-07 20:19] LABS: BACTERIA,URINE FEW /HPF (None Seen); MUCUS,URINE None Seen /LPF (None Seen)
[2023-06-07 21:17] LABS: INR 2.5 (0.80-1.20); PROTHROMBIN TIME 24.5 SECS (9.5-12.5)
[2023-06-07] MEDS: FUROSEMIDE 40 MG/4 ML VIAL IVP SCH (22:50)
[2023-06-07 23:48] LABS: COVID19 ANTIGEN SOFIA FIA NEGATIVE (NEGATIVE)
[2023-06-07 23:55] LABS: INFLUENZA TYPE A Negative (NEGATIVE); INFLUENZA TYPE B NEGATIVE (NEGATIVE)
[2023-06-08] MEDS ORDERED: FUROSEMIDE 40 MG/4 ML VIAL IVP SCH (07:00)
[2023-06-08 12:38] VITALS: BP_SYST 119; PULSE 120; RESP 18; TEMP 97.5; O2SAT 99
[2023-06-08 12:49] VITALS: BP_SYST 119; PULSE 120; RESP 18; TEMP 97.5; O2SAT 99
[2023-06-08] MEDS ORDERED: FERR-69 PO (15:07)
[2023-06-08] MEDS ORDERED: LIP40 PO (15:09)
[2023-06-08] MEDS ORDERED: POTA8TAB66 PO (15:14)
[2023-06-08] MEDS ORDERED: HYDR-4039 PO (15:14)
[2023-06-08] MEDS ORDERED: METO-544 PO (15:14)
[2023-06-08] MEDS ORDERED: WARF3TAB59 PO (15:14)
[2023-06-08] MEDS ORDERED: FURO-149 PO (15:15)
[2023-06-08] MEDS ORDERED: VERI2.5T PO (15:17)
[2023-06-08 16:00] VITALS: BP_SYST 120; PULSE 117; RESP 18; TEMP 98.1; O2SAT 97
[2023-06-08] MEDS: ONDANSETRON HCL 4 MG/2 ML VIAL IVP PRN (18:43)
[2023-06-08] MEDS: guaiFENesin/DEXTROMETHORPHAN 10 ML UDC PO PRN (18:45)
[2023-06-08 19:00] VITALS: BP_SYST 120; PULSE 119; O2SAT 97
[2023-06-08] MEDS: IPRATROPIUM/ALBUTEROL SULFATE 3 ML AMPUL.NEB (DUONEB) INH SCH (19:40)
[2023-06-08 20:00] VITALS: BP_SYST 139; PULSE 114; RESP 18; TEMP 98.5; O2SAT 100; O2SAT 95
[2023-06-08] MEDS ORDERED: NALOXONE HCL 0.4 MG/ML AMP (NARCAN) IVP PRN ×2 (20:45)
[2023-06-08] MEDS ORDERED: HYDROcodone/ACETAMIN 5-325 MG TAB (NORCO/ VICODIN) PO PRN (20:45)
[2023-06-08] MEDS ORDERED: HYDROcodone/ACETAMIN 10-325 MG TAB PO PRN (20:45)
[2023-06-08] MEDS ORDERED: ONDANSETRON HCL 4 MG/2 ML VIAL IVP PRN (20:45)
[2023-06-08] MEDS ORDERED: LORazepam 2 MG/ML VIAL IVP PRN (20:45)
[2023-06-08] MEDS ORDERED: ACETAMINOPHEN 325 MG TABLET PO PRN (21:00)
[2023-06-08] MEDS: NORMAL SALINE 5 ML DISP.SYRIN IVF SCH (22:27)
[2023-06-08] MEDS: ATORVASTATIN 20 MG TABLET PO SCH (22:46)
[2023-06-08] MEDS: FERROUS SULFATE 325 MG TABLET.DR PO SCH (22:47)
[2023-06-08] MEDS: hydrALAZINE HCL 25 MG TABLET PO SCH (22:47)
[2023-06-08] MEDS: ISOSORBIDE DINITRATE 10 MG TABLET (ISORDIL) PO SCH (22:47)
[2023-06-08] MEDS: METOPROLOL SUCCINATE 50 MG TAB.SR.24H (TOPROL XL) PO SCH (22:48)
[2023-06-08 23:30] VITALS: O2SAT 95
[2023-06-09] VITALS (9 sets, daily range): BP systolic 111–134; PULSE 74–125; RESP 16–18; TEMP 96.7–97.2; O2SAT 81–100
[2023-06-09 04:56] LABS: BASOPHILS % (AUTO) 0.8 % (0.0-2.0); EOSINOPHILS % (AUTO) 0.2 % (0.0-4.0); HEMATOCRIT 30.4 % (36-54); HEMOGLOBIN 10.1 g/dL (14.0-18.0); LYMPHOCYTES # (AUTO) 0.5 K/uL (1.0-5.5); LYMPHOCYTES % (AUTO) 14.6 % (20.5-51.5); MEAN CORPUSCULAR HEMOGLOBIN 28 pg (27-31); MEAN CORPUSCULAR HGB CONC 33 % (32-36); MEAN CORPUSCULAR VOLUME 84 fL (79.0-98.0); MONOCYTES # (AUTO) 0.5 K/uL (0.0-1.0); MONOCYTES % (AUTO) 14.3 % (1.7-9.3); NEUTROPHILS # (AUTO) 2.6 K/uL (1.8-7.7); NEUTROPHILS % (AUTO) 70.1 % (40.0-70.0); PLATELET COUNT (AUTO) 297 K/uL (130-430); RED BLOOD CELL COUNT(AUTO) 3.63 MIL/uL (4.2-6.2); WHITE BLOOD COUNT (AUTO) 3.7 K/uL (4.8-10.8)
[2023-06-09 05:22] LABS: ALANINE AMINOTRANSFERASE 30 U/L (12-78); ALBUMIN 2.2 g/dL (3.4-4.8); ANION GAP 12 (5-15); ASPARTATE AMINOTRANSFERASE 34 U/L (10-37); CALCIUM 7.1 mg/dL (8.4-11.0); CARBON DIOXIDE 27 mmol/L (23-29); CHLORIDE 99 mmol/L (98-107); CREATININE 3.31 mg/dL (0.55-1.30); DIGOXIN 0.2 ng/mL (0.80-2.00); GLUCOSE 176 mg/dL (74-106); PHOSPHORUS 4.9 mg/dL (2.7-4.5); POTASSIUM 3.6 mmol/L (3.5-5.1); SODIUM SERUM 138 mmol/L (136-145); UREA NITROGEN, BLOOD 56 mg/dL (8-21)
[2023-06-09] MEDS ORDERED: VERICIGUAT 2.5 MG PO SCH (09:00)
[2023-06-09] MEDS ORDERED: DAPAGLIFLOZIN PROPANEDIOL NF 5 MG TABLET PO SCH (09:00)
[2023-06-09] MEDS ORDERED: FUROSEMIDE 40 MG TABLET PO SCH (09:00)
[2023-06-09] MEDS: VERQUVO 2.5 MG PO SCH (09:00)
[2023-06-09] MEDS ORDERED: ATORVASTATIN 20 MG TABLET PO SCH (09:00)
[2023-06-09] MEDS: POTASSIUM CHLORIDE 8 MEQ TABLET.ER PO SCH (09:32)
[2023-06-09] MEDS: DIGOXIN 0.25 MG TABLET PO SCH (09:32)
[2023-06-09] MEDS: CHOLECALCIFEROL (VITAMIN D3) 2,000 UNIT TABLET PO SCH (09:35)
[2023-06-09] MEDS: OMEGA-3/DHA/EPA/FISH OIL 1 GM CAPSULE PO SCH (09:35)
[2023-06-09] MEDS: EMPAGLIFLOZIN 10 MG TABLET PO SCH (09:36)
[2023-06-09] MEDS: FUROSEMIDE 40 MG/4 ML VIAL IVP SCH ×2 (09:36→15:13)
[2023-06-09] MEDS: DIGOXIN 0.5 MG/2 ML AMP IVP ONE (13:17)
[2023-06-09] MEDS: AZITHROMYCIN 250 MG in NS 250 ML IV SCH (13:18)
[2023-06-09 14:59] LABS: INR 2.1 (0.80-1.20); PROTHROMBIN TIME 20.7 SECS (9.5-12.5)
[2023-06-09] MEDS: WARFARIN SODIUM 3 MG TABLET PO SCH (18:50)
[2023-06-09] MEDS ORDERED: FUROSEMIDE 40 MG/4 ML VIAL IVP SCH (21:00)
[2023-06-10] VITALS (10 sets, daily range): BP systolic 112–134; PULSE 102–108; RESP 16–18; TEMP 97.4–98.6; O2SAT 85–99
[2023-06-10 06:05] LABS: INR 2.2 (0.80-1.20); PROTHROMBIN TIME 21.8 SECS (9.5-12.5)
[2023-06-10 06:13] LABS: BASOPHILS % (AUTO) 0.7 % (0.0-2.0); EOSINOPHILS % (AUTO) 0.3 % (0.0-4.0); HEMATOCRIT 27.9 % (36-54); HEMOGLOBIN 9.3 g/dL (14.0-18.0); LYMPHOCYTES # (AUTO) 0.5 K/uL (1.0-5.5); LYMPHOCYTES % (AUTO) 14.5 % (20.5-51.5); MEAN CORPUSCULAR HEMOGLOBIN 28 pg (27-31); MEAN CORPUSCULAR HGB CONC 33 % (32-36); MEAN CORPUSCULAR VOLUME 84 fL (79.0-98.0); MONOCYTES # (AUTO) 0.5 K/uL (0.0-1.0); MONOCYTES % (AUTO) 14.1 % (1.7-9.3); NEUTROPHILS # (AUTO) 2.4 K/uL (1.8-7.7); NEUTROPHILS % (AUTO) 70.4 % (40.0-70.0); PLATELET COUNT (AUTO) 244 K/uL (130-430); RED BLOOD CELL COUNT(AUTO) 3.31 MIL/uL (4.2-6.2); RED CELL DISTRIBUTION WIDTH 17.6 % (9.0-15.0); WHITE BLOOD COUNT (AUTO) 3.3 K/uL (4.8-10.8)
[2023-06-10 06:19] LABS: ANION GAP 11 (5-15); CARBON DIOXIDE 29 mmol/L (23-29); CHLORIDE 101 mmol/L (98-107); CREATININE 3.41 mg/dL (0.55-1.30); GLUCOSE 163 mg/dL (74-106); SODIUM SERUM 141 mmol/L (136-145); UREA NITROGEN, BLOOD 55 mg/dL (8-21)
[2023-06-10] MEDS: FUROSEMIDE 40 MG/4 ML VIAL IVP SCH ×2 (08:45→22:40)
[2023-06-10 11:57] LABS: BASOPHILS % (AUTO) 0.7 % (0.0-2.0); EOSINOPHILS % (AUTO) 0.4 % (0.0-4.0); LYMPHOCYTES # (AUTO) 0.5 K/uL (1.0-5.5); LYMPHOCYTES % (AUTO) 15.2 % (20.5-51.5); MEAN CORPUSCULAR HEMOGLOBIN 27 pg (27-31); MEAN CORPUSCULAR HGB CONC 32 % (32-36); MEAN CORPUSCULAR VOLUME 84 fL (79.0-98.0); MONOCYTES # (AUTO) 0.5 K/uL (0.0-1.0); MONOCYTES % (AUTO) 15.4 % (1.7-9.3); NEUTROPHILS # (AUTO) 2.1 K/uL (1.8-7.7); NEUTROPHILS % (AUTO) 68.3 % (40.0-70.0); PLATELET COUNT (AUTO) 228 K/uL (130-430); RED BLOOD CELL COUNT(AUTO) 3.68 MIL/uL (4.2-6.2); RED CELL DISTRIBUTION WIDTH 17.3 % (9.0-15.0); WHITE BLOOD COUNT (AUTO) 3.1 K/uL (4.8-10.8)
[2023-06-10] MEDS: WARFARIN SODIUM 4 MG TABLET PO SCH (18:40)
[2023-06-11] VITALS (14 sets, daily range): BP systolic 97–144; PULSE 93–110; RESP 18; TEMP 96.7–97.7; O2SAT 2–100
[2023-06-11 08:00] LABS: INR 3.3 (0.80-1.20); PROTHROMBIN TIME 32.2 SECS (9.5-12.5)
[2023-06-11 08:01] LABS: ANION GAP 9 (5-15); CARBON DIOXIDE 30 mmol/L (23-29); CHLORIDE 103 mmol/L (98-107); GLUCOSE 100 mg/dL (74-106); POTASSIUM 3.3 mmol/L (3.5-5.1); SODIUM SERUM 142 mmol/L (136-145)
[2023-06-11 08:02] LABS: CREATININE 3.04 mg/dL (0.55-1.30); UREA NITROGEN, BLOOD 50 mg/dL (8-21)
[2023-06-11 08:06] LABS: CALCIUM 6.9 mg/dL (8.4-11.0)
[2023-06-11] MEDS: calcitrioL 0.25 MCG CAPSULE PO SCH (08:47)
[2023-06-11] MEDS: CINACALCET HCL 30 MG TABLET PO SCH (08:49)
[2023-06-11] MEDS ORDERED: DIGO250T PO (09:46)
[2023-06-11] MEDS: POTASSIUM CHLORIDE 20 MEQ TABLET.ER PO ONE (11:10)
[2023-06-11] MEDS: WARFARIN SODIUM 3 MG TABLET PO SCH (18:13)
[2023-06-12] VITALS (12 sets, daily range): BP systolic 116–131; PULSE 78–110; RESP 16–20; TEMP 96.3–97.9; O2SAT 91–99
[2023-06-12 06:55] LABS: BASOPHILS % (AUTO) 0.4 % (0.0-2.0); EOSINOPHILS % (AUTO) 0.5 % (0.0-4.0); HEMATOCRIT 33.6 % (36-54); HEMOGLOBIN 11.3 g/dL (14.0-18.0); LYMPHOCYTES # (AUTO) 0.8 K/uL (1.0-5.5); LYMPHOCYTES % (AUTO) 17.3 % (20.5-51.5); MEAN CORPUSCULAR HEMOGLOBIN 28 pg (27-31); MEAN CORPUSCULAR HGB CONC 34 % (32-36); MEAN CORPUSCULAR VOLUME 84 fL (79.0-98.0); MONOCYTES # (AUTO) 0.5 K/uL (0.0-1.0); MONOCYTES % (AUTO) 9.8 % (1.7-9.3); NEUTROPHILS # (AUTO) 3.5 K/uL (1.8-7.7); PLATELET COUNT (AUTO) 245 K/uL (130-430); RED BLOOD CELL COUNT(AUTO) 3.99 MIL/uL (4.2-6.2); RED CELL DISTRIBUTION WIDTH 17.5 % (9.0-15.0); WHITE BLOOD COUNT (AUTO) 4.8 K/uL (4.8-10.8)
[2023-06-12 07:31] LABS: ANION GAP 9 (5-15); CALCIUM 7.5 mg/dL (8.4-11.0); CARBON DIOXIDE 33 mmol/L (23-29); CHLORIDE 102 mmol/L (98-107); CREATININE 2.98 mg/dL (0.55-1.30); GLUCOSE 124 mg/dL (74-106); POTASSIUM 3.7 mmol/L (3.5-5.1); SODIUM SERUM 144 mmol/L (136-145); UREA NITROGEN, BLOOD 50 mg/dL (8-21)
[2023-06-12] MEDS ORDERED: METO2.5T6 PO (09:24)
[2023-06-12 09:35] LABS: PROTHROMBIN TIME 47.6 SECS (9.5-12.5)
[2023-06-12 09:36] LABS: INR 4.9 (0.80-1.20)
[2023-06-12] MEDS: ACETAMINOPHEN 325 MG TABLET PO PRN (13:08)
[2023-06-12] MEDS: METHYLPREDNISOLONE SOD SUCC 40 MG/ML VIAL IVP SCH (20:44)
[2023-06-13] VITALS (11 sets, daily range): BP systolic 121–146; PULSE 61–113; RESP 13–19; TEMP 96.9–98.5; O2SAT 90–98
[2023-06-13 09:48] LABS: INR 7.2 (0.80-1.20); PROTHROMBIN TIME 68.2 SECS (9.5-12.5)
[2023-06-14] VITALS (12 sets, daily range): BP systolic 122–141; PULSE 65–111; RESP 18–19; TEMP 96.2–98.8; O2SAT 91–98
[2023-06-14 04:51] LABS: ANION GAP 9 (5-15); CARBON DIOXIDE 32 mmol/L (23-29); CHLORIDE 103 mmol/L (98-107); CREATININE 3.14 mg/dL (0.55-1.30); GLUCOSE 273 mg/dL (74-106); POTASSIUM 4.3 mmol/L (3.5-5.1); SODIUM SERUM 144 mmol/L (136-145); UREA NITROGEN, BLOOD 53 mg/dL (8-21)
[2023-06-14 06:17] LABS: CALCIUM 6.8 mg/dL (8.4-11.0)
[2023-06-14 06:49] LABS: PROTHROMBIN TIME 56.9 SECS (9.5-12.5)
[2023-06-14] MEDS: DIGOXIN 0.25 MG TABLET PO SCH (09:02)
[2023-06-14] MEDS: CALCIUM CARBONATE 500 MG/ TAB.CHEW PO ONE (11:05)
[2023-06-14] MEDS: metOLazone 5 MG TABLET PO ONE (11:05)
[2023-06-14] MEDS: PHYTONADIONE 1 MG/0.5 ML SYR SUBCUT ONE (14:34)
[2023-06-14] MEDS: CALCIUM CARBONATE 500 MG/ TAB.CHEW PO SCH (22:29)
[2023-06-15 02:08] VITALS: BP_SYST 118; PULSE 78; RESP 18; TEMP 97.8; O2SAT 98
[2023-06-15 03:55] VITALS: O2SAT 92
[2023-06-15 04:16] VITALS: BP_SYST 127; PULSE 68; RESP 17; TEMP 97.7; O2SAT 97
[2023-06-15 04:21] LABS: BASOPHILS % (AUTO) 0.1 % (0.0-2.0); HEMATOCRIT 28.9 % (36-54); HEMOGLOBIN 9.6 g/dL (14.0-18.0); LYMPHOCYTES # (AUTO) 0.3 K/uL (1.0-5.5); LYMPHOCYTES % (AUTO) 4.3 % (20.5-51.5); MEAN CORPUSCULAR HEMOGLOBIN 28 pg (27-31); MEAN CORPUSCULAR HGB CONC 33 % (32-36); MEAN CORPUSCULAR VOLUME 84 fL (79.0-98.0); MONOCYTES # (AUTO) 0.2 K/uL (0.0-1.0); MONOCYTES % (AUTO) 3.7 % (1.7-9.3); NEUTROPHILS # (AUTO) 5.3 K/uL (1.8-7.7); NEUTROPHILS % (AUTO) 91.9 % (40.0-70.0); PLATELET COUNT (AUTO) 200 K/uL (130-430); RED BLOOD CELL COUNT(AUTO) 3.45 MIL/uL (4.2-6.2); RED CELL DISTRIBUTION WIDTH 17.4 % (9.0-15.0); WHITE BLOOD COUNT (AUTO) 5.8 K/uL (4.8-10.8)
[2023-06-15 05:01] LABS: ANION GAP 10 (5-15); CALCIUM 7.6 mg/dL (8.4-11.0); CARBON DIOXIDE 32 mmol/L (23-29); CHLORIDE 96 mmol/L (98-107); CREATININE 3.48 mg/dL (0.55-1.30); GLUCOSE 397 mg/dL (74-106); POTASSIUM 3.7 mmol/L (3.5-5.1); SODIUM SERUM 138 mmol/L (136-145); UREA NITROGEN, BLOOD 66 mg/dL (8-21)
[2023-06-15 07:20] VITALS: O2SAT 96
[2023-06-15 07:25] LABS: INR 4.4 (0.80-1.20)
[2023-06-15 09:06] VITALS: BP_SYST 122; PULSE 100; RESP 18; TEMP 98.3; O2SAT 93
[2023-06-15] MEDS: metOLazone 5 MG TABLET PO SCH (10:04)
[2023-06-15] MEDS ORDERED: WARF3TAB59 PO (10:08)
[2023-06-15] MEDS ORDERED: CALC-823 PO (10:47)
[2023-06-15 15:39] VITALS: BP_SYST 134; PULSE 109; RESP 20; TEMP 97.8; O2SAT 97
== END 2023-06-15 16:15 | disposition home or self-care (01) | DRG 682 ==
LOC: SED 18:42 → STU 22:08 → SMU 06-14 12:36
PROVIDERS: ADMIT Specialist; ATTEND Specialist
DX: N17.0 Acute kidney failure with tubular necrosis (principal); I50.23 Acute on chronic systolic (congestive) heart failure; J96.01 Acute respiratory failure with hypoxia; I13.0 Hypertensive heart and chronic kidney disease with heart failure and stage 1 through stage 4 chronic kidney disease, or unspecified chronic kidney disease; R18.8 Other ascites; E44.0 Moderate protein-calorie malnutrition; R65.10 Systemic inflammatory response syndrome (SIRS) of non-infectious origin without acute organ dysfunction; I25.10 Atherosclerotic heart disease of native coronary artery without angina pectoris; E88.09 Other disorders of plasma-protein metabolism, not elsewhere classified; E83.51 Hypocalcemia; E11.65 Type 2 diabetes mellitus with hyperglycemia; N18.9 Chronic kidney disease, unspecified; E11.22 Type 2 diabetes mellitus with diabetic chronic kidney disease; K74.60 Unspecified cirrhosis of liver; D63.1 Anemia in chronic kidney disease; Z20.822 Contact with and (suspected) exposure to COVID-19; E78.5 Hyperlipidemia, unspecified; Z98.84 Bariatric surgery status; Z79.899 Other long term (current) drug therapy; Z68.23 Body mass index [BMI] 23.0-23.9, adult; I35.0 Nonrheumatic aortic (valve) stenosis
CPT/HCPCS: 36415; 71045; 76376; 76705; 80048; 80053; 80076; 80162; 81000; 81001; 81015; 82150; 82948; 83605; 83690; 83735; 83880; 83970; 84100; 84484; 85025; 85610; 85730; 87086; 93005; 94010; 94640; 94760; 97110-GP; 97116-GP; 97530-GP; 99285; G0378; J0456; J1030; J1160; J1940; J2405; J3430; J7050

== ENCOUNTER 2024-02-29 12:03 | Inpatient (IN) | payer MEDICARE, OTHER ==
[~2024-02-29] VITALS: Ht 170.2 cm; Wt 66.4 kg
[~2024-02-29 12:03] MED LIST changes: +APIX2.5T PO; +CALC-823 PO; -DAPA5TAB PO; +EMPA10TA PO; -FER300L PO; +FERR-69 PO; +FOLI-43 PO; -HYDR-4037 PO; +HYDR50TA45 PO; -HYDR50TA61 PO; -LIP20 PO; +LIP40 PO; +METO-308 PO; -METO-542 PO; +METO2.5T6 PO; +MIDO5TAB4 PO; -POTA-197 PO; +POTA8TAB66 PO; -PRED50TA PO; +VERI2.5T PO; -WARF4TAB72 PO
[2024-02-29 12:07] VITALS: BP_SYST 124; PULSE 62; RESP 18; TEMP 97.8; O2SAT 96
[2024-02-29 13:21] LABS: BASOPHILS % (AUTO) 0.7 % (0.0-2.0); EOSINOPHILS # (AUTO) 0.1 K/uL (0.0-0.4); EOSINOPHILS % (AUTO) 2.1 % (0.0-4.0); HEMATOCRIT 25.7 % (36-54); HEMOGLOBIN 8.3 g/dL (14.0-18.0); LYMPHOCYTES # (AUTO) 0.7 K/uL (1.0-5.5); LYMPHOCYTES % (AUTO) 18.7 % (20.5-51.5); MEAN CORPUSCULAR HEMOGLOBIN 31 pg (27-31); MEAN CORPUSCULAR HGB CONC 32 % (32-36); MEAN CORPUSCULAR VOLUME 97 fL (79.0-98.0); MONOCYTES # (AUTO) 0.4 K/uL (0.0-1.0); MONOCYTES % (AUTO) 10.2 % (1.7-9.3); NEUTROPHILS # (AUTO) 2.6 K/uL (1.8-7.7); PLATELET COUNT (AUTO) 122 K/uL (130-430); RED BLOOD CELL COUNT(AUTO) 2.65 MIL/uL (4.2-6.2); RED CELL DISTRIBUTION WIDTH 21.2 % (9.0-15.0); WHITE BLOOD COUNT (AUTO) 3.8 K/uL (4.8-10.8)
[2024-02-29] MEDS: DIPHENOXYLATE HCL/ATROP SULF 2.5 MG TAB PO ONE (13:23)
[2024-02-29 13:40] LABS: ALANINE AMINOTRANSFERASE 20 U/L (12-78); ALBUMIN 2.2 g/dL (3.4-4.8); ANION GAP 7 (5-15); ASPARTATE AMINOTRANSFERASE 30 U/L (10-37); CALCIUM 8.1 mg/dL (8.4-11.0); CARBON DIOXIDE 34 mmol/L (23-29); CHLORIDE 100 mmol/L (98-107); CREATININE 3.62 mg/dL (0.55-1.30); GLUCOSE 116 mg/dL (74-106); POTASSIUM 3.5 mmol/L (3.5-5.1); SODIUM SERUM 141 mmol/L (136-145); TOTAL BILIRUBIN 1.4 mg/dL (0.0-1.0); TOTAL PROTEIN, SERUM 6.6 g/dL (6.4-8.3); UREA NITROGEN, BLOOD 27 mg/dL (8-21)
[2024-02-29 14:19] LABS: INR > 9.0 (0.80-1.20); PROTHROMBIN TIME 89.2 SECS (9.5-12.5)
[2024-02-29 14:47] LABS: NEUTROPHILS % (AUTO) 68.3 % (40.0-70.0)
[2024-02-29 14:50] LABS: ANISOCYTOSIS 1+; TARGET CELLS FEW
[2024-02-29] MEDS: PHYTONADIONE Non-Formulary 5 MG TABLET PO ONE (16:11)
[2024-02-29] MEDS ORDERED: LACT10PA5 PO (16:44)
[2024-02-29] MEDS ORDERED: FOLI0.8T42 PO (16:44)
[2024-02-29] MEDS ORDERED: METO-442 PO (16:44)
[2024-02-29] MEDS ORDERED: SSNOVOLOG SUBCUT (16:44)
[2024-02-29] MEDS ORDERED: MELA5TAB12 PO (16:44)
[2024-02-29] MEDS: PHYTONADIONE 10 MG/ML AMP PO ONE (16:46)
[2024-02-29 19:19] LABS: BILIRUBIN,URINE NEGATIVE (NEGATIVE); BLOOD, URINE NEGATIVE (NEGATIVE); CLARITY/URINE CLEAR (CLEAR); COLOR,URINE YELLOW (YELLOW); GLUCOSE,URINE NEGATIVE (NEGATIVE); KETONES,URINE NEGATIVE (NEGATIVE); LEUKOCYTE ESTERASE ,URINE NEGATIVE (NEGATIVE); NITRITE, URINE NEGATIVE (NEGATIVE); PH,URINE 7.5 (5.0-8.0); PROTEIN URINE 2+ (NEGATIVE); UROBILINOGEN,URINE 0.2 (0.2-1.0)
[2024-02-29 20:17] LABS: BACTERIA,URINE FEW /HPF (None Seen); MUCUS,URINE None Seen /LPF (None Seen); RBC,URINE 0-3 /HPF (0-3); WBC,URINE 0-3 /HPF (0-3)
[2024-02-29 21:46] VITALS: BP_SYST 104; PULSE 55; RESP 20; TEMP 97.7; O2SAT 94
[2024-02-29] MEDS: ACETAMINOPHEN 325 MG TABLET PO PRN (22:49)
[2024-03-01] VITALS: BP_SYST 106; PULSE 54; RESP 20; TEMP 97.6; O2SAT 95
[2024-03-01 04:00] VITALS: BP_SYST 112; PULSE 52; RESP 20; TEMP 97.2; O2SAT 95
[2024-03-01 07:39] LABS: BASOPHILS % (AUTO) 0.6 % (0.0-2.0); EOSINOPHILS # (AUTO) 0.1 K/uL (0.0-0.4); EOSINOPHILS % (AUTO) 2.2 % (0.0-4.0); HEMATOCRIT 24.7 % (36-54); LYMPHOCYTES # (AUTO) 0.8 K/uL (1.0-5.5); LYMPHOCYTES % (AUTO) 19.5 % (20.5-51.5); MEAN CORPUSCULAR HEMOGLOBIN 31 pg (27-31); MEAN CORPUSCULAR HGB CONC 32 % (32-36); MEAN CORPUSCULAR VOLUME 97 fL (79.0-98.0); MONOCYTES # (AUTO) 0.5 K/uL (0.0-1.0); MONOCYTES % (AUTO) 10.8 % (1.7-9.3); NEUTROPHILS # (AUTO) 2.8 K/uL (1.8-7.7); NEUTROPHILS % (AUTO) 66.9 % (40.0-70.0); PLATELET COUNT (AUTO) 104 K/uL (130-430); RED BLOOD CELL COUNT(AUTO) 2.56 MIL/uL (4.2-6.2); RED CELL DISTRIBUTION WIDTH 21.1 % (9.0-15.0); WHITE BLOOD COUNT (AUTO) 4.2 K/uL (4.8-10.8)
[2024-03-01 08:00] VITALS: BP_SYST 103; PULSE 54; RESP 18; TEMP 97.8; O2SAT 97
[2024-03-01 08:02] LABS: ALANINE AMINOTRANSFERASE 18 U/L (12-78); ALBUMIN 2.3 g/dL (3.4-4.8); ANION GAP 9 (5-15); ASPARTATE AMINOTRANSFERASE 26 U/L (10-37); CARBON DIOXIDE 31 mmol/L (23-29); CHLORIDE 100 mmol/L (98-107); GLUCOSE 82 mg/dL (74-106); POTASSIUM 3.7 mmol/L (3.5-5.1); SODIUM SERUM 140 mmol/L (136-145); TOTAL BILIRUBIN 1.4 mg/dL (0.0-1.0); TOTAL PROTEIN, SERUM 6.6 g/dL (6.4-8.3); UREA NITROGEN, BLOOD 28 mg/dL (8-21)
[2024-03-01 08:09] LABS: INR 3.9 (0.80-1.20)
[2024-03-01] MEDS ORDERED: INSULIN ASPART 100 UNITS/ML, 10 ML VIAL (NovoLOG) SUBCUT PRN (11:45)
[2024-03-01 12:00] VITALS: BP_SYST 109; PULSE 53; RESP 19; TEMP 97.4; O2SAT 97
[2024-03-01] MEDS ORDERED: LACTULOSE 20 GM/30 ML UDC PO PRN (12:00)
[2024-03-01] MEDS ORDERED: MELATONIN 5 MG TABLET PO PRN (12:00)
[2024-03-01] MEDS ORDERED: INSULIN LISPRO SLIDING SCALE 100 UNITS/ML, 3 ML VIAL (humaLOG) SUBCUT PRN (12:15)
[2024-03-01] MEDS: FERROUS SULFATE 325 MG TABLET.DR PO ONE (12:27)
[2024-03-01 13:08] LABS: INR 3.6 (0.80-1.20); PROTHROMBIN TIME 34.6 SECS (9.5-12.5)
[2024-03-01] MEDS: ISOSORBIDE DINITRATE 10 MG TABLET (ISORDIL) PO SCH (14:00)
[2024-03-01] MEDS: hydrALAZINE HCL 25 MG TABLET PO SCH (15:00)
[2024-03-01 16:49] VITALS: BP_SYST 114; PULSE 55; RESP 19; TEMP 96.8; O2SAT 95
[2024-03-01 20:00] VITALS: BP_SYST 109; PULSE 57; RESP 18; TEMP 97.7
[2024-03-01] MEDS: CALCIUM CARBONATE/VITAMIN D3 1 TAB TABLET PO SCH (21:13)
[2024-03-01] MEDS: ATORVASTATIN 20 MG TABLET PO SCH (21:13)
[2024-03-02] VITALS: BP_SYST 120; PULSE 59; RESP 18; TEMP 97.9; O2SAT 94
[2024-03-02 07:21] LABS: BASOPHILS % (AUTO) 0.6 % (0.0-2.0); EOSINOPHILS # (AUTO) 0.1 K/uL (0.0-0.4); EOSINOPHILS % (AUTO) 2.7 % (0.0-4.0); HEMATOCRIT 25.8 % (36-54); HEMOGLOBIN 8.4 g/dL (14.0-18.0); LYMPHOCYTES # (AUTO) 0.8 K/uL (1.0-5.5); LYMPHOCYTES % (AUTO) 19.2 % (20.5-51.5); MEAN CORPUSCULAR HEMOGLOBIN 31 pg (27-31); MEAN CORPUSCULAR HGB CONC 32 % (32-36); MEAN CORPUSCULAR VOLUME 97 fL (79.0-98.0); MONOCYTES # (AUTO) 0.4 K/uL (0.0-1.0); MONOCYTES % (AUTO) 10.3 % (1.7-9.3); NEUTROPHILS # (AUTO) 2.6 K/uL (1.8-7.7); NEUTROPHILS % (AUTO) 67.2 % (40.0-70.0); PLATELET COUNT (AUTO) 93 K/uL (130-430); RED BLOOD CELL COUNT(AUTO) 2.67 MIL/uL (4.2-6.2); RED CELL DISTRIBUTION WIDTH 21.4 % (9.0-15.0); WHITE BLOOD COUNT (AUTO) 3.9 K/uL (4.8-10.8)
[2024-03-02 07:22] LABS: INR 3.3 (0.80-1.20); PROTHROMBIN TIME 32.6 SECS (9.5-12.5)
[2024-03-02] MEDS: POTASSIUM CHLORIDE 8 MEQ TABLET.ER PO SCH (10:19)
[2024-03-02] MEDS: OMEGA-3/DHA/EPA/FISH OIL 1 GM CAPSULE PO SCH (10:19)
[2024-03-02] MEDS: FERROUS SULFATE 325 MG TABLET.DR PO SCH (10:19)
[2024-03-02] MEDS: FUROSEMIDE 40 MG TABLET PO SCH (10:19)
[2024-03-02] MEDS: METOPROLOL TARTRATE 50 MG TABLET PO SCH (10:20)
[2024-03-02] MEDS: NEPHROVITE, (FOLIC ACID/VITAMIN B COMP W-C 1 TAB) PO SCH (10:20)
[2024-03-02] MEDS: FOLIC ACID 1 MG TABLET PO SCH (10:20)
[2024-03-02] MEDS: CHOLECALCIFEROL (VITAMIN D3) 2,000 UNIT TABLET PO SCH (10:20)
[2024-03-02] MEDS: metOLazone 2.5 MG TABLET PO SCH (10:44)
[2024-03-02 11:06] VITALS: BP_SYST 108; PULSE 53; RESP 16; TEMP 96.9; O2SAT 96
[2024-03-02] MEDS ORDERED: HEPARIN SODIUM, PORCINE 10,000 UNITS/ 10 ML VIAL MC ONE ×2 (15:15→15:45)
[2024-03-02] MEDS: HEPARIN SODIUM,PORCINE 5,000 UNITS/ML VIAL MC ONE ×2 (16:04→16:05)
[2024-03-02] MEDS: HEPARIN SODIUM, PORCINE 10,000 UNITS/ 10 ML VIAL MC ONE (16:06)
[2024-03-02 21:02] VITALS: BP_SYST 96; PULSE 102; RESP 18; TEMP 96.5; O2SAT 94
== END 2024-03-03 23:00 | DRG 917 ==
LOC: SED 12:03 → STU 15:48 → UNDODISIN 03-02 23:00
PROVIDERS: ADMIT Specialist; ATTEND Specialist
PROC: 30233K1 Transfusion of Nonautologous Frozen Plasma into Peripheral Vein, Percutaneous Approach (ICD-10-PCS; principal; 2024-02-29)
PROC: 5A1D70Z Performance of Urinary Filtration, Intermittent, Less than 6 Hours Per Day (ICD-10-PCS; 2024-03-01)
PROC: 5A1D70Z Performance of Urinary Filtration, Intermittent, Less than 6 Hours Per Day (ICD-10-PCS; 2024-03-02)
DX: T45.511A Poisoning by anticoagulants, accidental (unintentional), initial encounter (principal); A41.9 Sepsis, unspecified organism; J69.0 Pneumonitis due to inhalation of food and vomit; N18.6 End stage renal disease; R65.21 Severe sepsis with septic shock; N17.0 Acute kidney failure with tubular necrosis; I46.9 Cardiac arrest, cause unspecified; J96.01 Acute respiratory failure with hypoxia; D68.8 Other specified coagulation defects; I48.20 Chronic atrial fibrillation, unspecified; E87.1 Hypo-osmolality and hyponatremia; D68.59 Other primary thrombophilia; I12.0 Hypertensive chronic kidney disease with stage 5 chronic kidney disease or end stage renal disease; E78.5 Hyperlipidemia, unspecified; D63.1 Anemia in chronic kidney disease; D50.9 Iron deficiency anemia, unspecified; R73.9 Hyperglycemia, unspecified; E16.2 Hypoglycemia, unspecified; Z79.4 Long term (current) use of insulin; Z78.1 Physical restraint status; Y92.89 Other specified places as the place of occurrence of the external cause
CPT/HCPCS: 36415; 76770; 80053; 81000; 81001; 81015; 85025; 85384; 85610; 85730; 86900; 86901; 87081; 99285; G0378; J1644; J3430; P9059